=== PATIENT | female | born 1950 | race Caucasian/White ===

== ENCOUNTER 2016-07-11 | Emergency (ER) | payer BC, MEDICAID, OTHER ==
[~2016-07-11] VITALS: Ht 170.2 cm; Wt 68.0 kg
[2016-07-11] MEDS ORDERED: ASPI325T PO (00:30)
[2016-07-11] MEDS ORDERED: CALC600T57 PO (00:30)
[2016-07-11] MEDS ORDERED: [UNRECOGNIZED DRUG - CODE] PO (00:30)
[2016-07-11] MEDS ORDERED: MAGN250T3 PO (00:30)
[2016-07-11] MEDS ORDERED: POTA99TA PO (00:30)
[2016-07-11] MEDS ORDERED: LASI40TA PO (00:30)
[2016-07-11] MEDS ORDERED: CO Q10CA PO (00:30)
[2016-07-11] MEDS ORDERED: LANS15CA PO (00:30)
[2016-07-11] MEDS ORDERED: CODCAP PO (00:30)
[2016-07-11] MEDS ORDERED: COLA100C PO (00:30)
[2016-07-11] MEDS ORDERED: NEXI1CAP4 PO (00:30)
[2016-07-11] MEDS ORDERED: ENAL1.25 PO (00:30)
[2016-07-11] MEDS ORDERED: MELO7.5T6 PO ×2 (00:30)
[2016-07-11] MEDS ORDERED: hydrALAZINE INJ 20 MG/ML VIAL IV ONE (01:30)
[2016-07-11 02:04] LABS: ANION GAP 7 MEQ/L (8-16); BLOOD UREA NITROGEN 13 MG/DL (7-18); CALCIUM LEVEL 8.6 MG/DL (8.8-10.2); CARBON DIOXIDE LEVEL 32 MEQ/L (21-32); CHLORIDE LEVEL 100 MEQ/L (98-107); GLOMERULAR FILTRATION RATE > 60.0 (>45); GLUCOSE, FASTING 102 MG/DL (80-110); POTASSIUM SERUM 3.6 MEQ/L (3.5-5.1); SODIUM LEVEL 139 MEQ/L (136-145); T UPTAKE 33 % (30-39); THYROXINE (T4) 10.5 UG/DL (4.5-12.0)
[2016-07-11 03:32] VITALS: BP 134/66
--- NOTE | 2016-07-11 19:56 | ECGEPIP ---
Stationary ECG Study [facility] - ED Test Date: 2016-07-11 Pat Name: NORTH BERRY Department: Room: - Gender: F Schedule Maker: natalie : 1950 Requested By: SALO GENTILE Order Number: [id number] Reading MD: Erum John Measurements Intervals Vega Rate: 73 P: 51 CO: 156 QRS: 18 QRSD: 91 T: 39 QT: 412 QTc: 455 Interpretive Statements SINUS RHYTHM WITH OCCASIONAL VENTRICULAR PREMATURE COMPLEXES NSTTW ABNORMALITY INCREASED RATE 04/10/13 Electronically Signed On 07-11-2016 19:55:48 EDT by Eurm John
== END 2016-07-11 03:42 | disposition home or self-care (01) ==
LOC: M ED 01:37
DX: I49.3 Ventricular premature depolarization (principal)

== ENCOUNTER → 2018-01-26 | Outpatient (CLI) | payer OTHER, MEDICARE ==
[2018-01-26 12:56] LABS: HEMATOCRIT 37.7 % (36.0-47.0); HEMOGLOBIN 12.9 g/dl (12.0-15.5); MEAN CORPUSCULAR HEMOGLOBIN 30.6 pg (27.0-33.0); MEAN CORPUSCULAR HGB CONC 34.2 g/dl (32.0-36.5); MEAN CORPUSCULAR VOLUME 89.3 fl (80.0-96.0); PLATELET COUNT, AUTOMATED 307 10^3/uL (150-450); RED BLOOD COUNT 4.22 10^6/uL (4.00-5.40); RED CELL DISTRIBUTION WIDTH 13.4 % (11.5-14.5); WHITE BLOOD COUNT 4.8 10^3/uL (4.0-10.0)
[2018-01-26 13:09] LABS: INR 0.94; PROTHROMBIN TIME 12.7 SECONDS (12.1-14.4)
[2018-01-26 13:25] LABS: ERYTHROCYTE SEDIMENTATION RATE 12 mm/hr (0-30)
[2018-01-26 13:27] LABS: ALBUMIN 3.6 GM/DL (3.2-5.2); ALBUMIN/GLOBULIN RATIO 1.13 (1.00-1.93); ALKALINE PHOSPHATASE 60 U/L (45-117); ALT/SGPT 22 U/L (12-78); ANION GAP 6 MEQ/L (8-16); AST/SGOT 19 U/L (7-37); BILIRUBIN,TOTAL 0.6 MG/DL (0.2-1.0); BLOOD UREA NITROGEN 11 MG/DL (7-18); CALCIUM LEVEL 8.5 MG/DL (8.8-10.2); CARBON DIOXIDE LEVEL 31 MEQ/L (21-32); CHLORIDE LEVEL 102 MEQ/L (98-107); CREATININE FOR GFR 0.75 MG/DL (0.55-1.30); GLOMERULAR FILTRATION RATE > 60.0 (>45); GLUCOSE, FASTING 97 MG/DL (70-100); POTASSIUM SERUM 4.5 MEQ/L (3.5-5.1); SODIUM LEVEL 139 MEQ/L (136-145); TOTAL PROTEIN 6.8 GM/DL (6.4-8.2)
== END ==
LOC: M LAB 12:24
DX: Z01.818 Encounter for other preprocedural examination (principal); M17.11 Unilateral primary osteoarthritis, right knee
CPT/HCPCS: 71046

== ENCOUNTER 2018-02-07 05:45 | Inpatient (IN) | payer OTHER, MEDICARE ==
[2018-02-07] MEDS ORDERED: LR 1,000 ML IV (06:00)
[2018-02-07] MEDS ORDERED: MIDAZOLAM INJ 2 MG/2 ML VIAL (J2250) As Ordered ×2 (06:48→07:01)
[2018-02-07] MEDS ORDERED: fentaNYL 100 MCG/2 ML INJECTION (J3010) As Ordered ×2 (06:48→07:01)
[2018-02-07] MEDS ORDERED: ACETAMINOPHEN 500 MG TAB As Ordered (07:19)
[2018-02-07] MEDS: fentaNYL 100 MCG/2 ML INJECTION (J3010) IV ×2 (07:22→07:24)
[2018-02-07] MEDS: MIDAZOLAM INJ 2 MG/2 ML VIAL (J2250) IV ×2 (07:22→07:24)
[2018-02-07] MEDS ORDERED: dexameTHASONE 4 MG/ML 1ML VIAL (J1100) As Ordered (08:15)
[2018-02-07] MEDS ORDERED: BUPIVACAINE/DEXTROSE 0.75% 2 ML AMP As Ordered (08:15)
[2018-02-07] MEDS ORDERED: ONDANSETRON 4MG/2ML VIAL (J2405) As Ordered (08:15)
[2018-02-07] MEDS ORDERED: PROPOFOL 200 MG/20 ML VIAL As Ordered (08:15)
[2018-02-07] MEDS ORDERED: ePHEDrine SULFATE 25 MG/5 ML(5MG/ML) SYRINGE As Ordered (08:33)
[2018-02-07] MEDS ORDERED: PHENYLephrine HCL 500 MCG/5 ML (100MCG/ML) SYRINGE (J2370) As Ordered (08:49)
[2018-02-07] MEDS: TRANEXAMIC ACID 100 MG/ML 10ML VIAL As Ordered (08:55)
[2018-02-07] MEDS: ceFAZolin 1GM INJ (J0690 PER 500MG) As Ordered (08:55)
[2018-02-07] MEDS: BUPIVACAINE LIPOSOME/PF 1.3% 20 ML VIAL (13.3MG/ML)(EXPAREL) As Ordered (08:55)
[2018-02-07] MEDS: EPINEPHrine INJ 1 MG/ML 1ML AMP As Ordered (08:55)
[2018-02-07] MEDS: BUPIVACAINE HCL 0.25% 30 ML VIAL As Ordered (08:55)
[2018-02-07] MEDS ORDERED: MORPHINE 1MG/ML IN 0.9% NACL 100ML IV BAG As Ordered (09:28)
[2018-02-07] MEDS: MORPHINE 1MG/ML IN 0.9% NACL 100ML IV BAG IV (10:14)
[2018-02-07] MEDS ORDERED: ACETAMINOPHEN TAB 650MG DOSE (2X325MG) PO (10:15)
[2018-02-07] MEDS ORDERED: EPIDURAL/PCA KEYS XX (10:15)
[2018-02-07] MEDS ORDERED: ONDANSETRON 4MG/2ML VIAL (J2405) IV ×2 (10:15)
[2018-02-07] MEDS ORDERED: FLEET ENEMA PR (10:15)
[2018-02-07] MEDS ORDERED: NALOXONE INJ 0.4 MG/1 ML VIAL (J2310) IV (10:15)
[2018-02-07] MEDS ORDERED: MEPERIDINE INJ 25 MG/ML VIAL (J2175) IV (10:15)
[2018-02-07] MEDS ORDERED: fentaNYL 100 MCG/2 ML INJECTION (J3010) IV (10:15)
[2018-02-07] MEDS ORDERED: METOCLOPRAMIDE INJ 10MG/2ML VIAL (J2765) IV (10:15)
[2018-02-07] MEDS: LR 1,000 ML IV ×3 (10:15→22:45)
[2018-02-07] MEDS ORDERED: PERCOCET 5MG/325MG TAB PO (10:15)
[2018-02-07] MEDS ORDERED: NALBUPHINE HCL 10 MG/ML AMP (J2300) IV (10:15)
[2018-02-07] MEDS ORDERED: diphenhydrAMINE INJ 50MG/ML VIAL (J1200) IV (10:15)
[2018-02-07] MEDS ORDERED: EPINEPHrine INJ 1 MG/ML 1ML AMP (11:04)
[2018-02-07] MEDS ORDERED: ROPIvacaine 0.5% 30 ML INJECTION (J2795 PER 1MG) (11:04)
[2018-02-07] MEDS ORDERED: dexameTHASONE 10 MG/1 ML VIAL PRES.FREE (J1100) (11:04)
[2018-02-08 06:00] LABS: HEMATOCRIT 30.1 % (36.0-47.0); MEAN CORPUSCULAR HEMOGLOBIN 29.9 pg (27.0-33.0); MEAN CORPUSCULAR HGB CONC 33.2 g/dl (32.0-36.5); MEAN CORPUSCULAR VOLUME 89.9 fl (80.0-96.0); PLATELET COUNT, AUTOMATED 272 10^3/uL (150-450); RED BLOOD COUNT 3.35 10^6/uL (4.00-5.40); WHITE BLOOD COUNT 12.1 10^3/uL (4.0-10.0)
[2018-02-08 06:26] LABS: ANION GAP 7 MEQ/L (8-16); BLOOD UREA NITROGEN 8 MG/DL (7-18); CALCIUM LEVEL 7.9 MG/DL (8.8-10.2); CARBON DIOXIDE LEVEL 29 MEQ/L (21-32); CHLORIDE LEVEL 104 MEQ/L (98-107); CREATININE FOR GFR 0.62 MG/DL (0.55-1.30); GLOMERULAR FILTRATION RATE > 60.0 (>45); GLUCOSE, FASTING 108 MG/DL (70-100); POTASSIUM SERUM 3.6 MEQ/L (3.5-5.1); SODIUM LEVEL 140 MEQ/L (136-145)
[2018-02-08] MEDS ORDERED: PERCOCET 5MG/325MG TAB PO (06:45)
[2018-02-08] MEDS: ONDANSETRON 4 MG TAB (S0181) PO (10:05)
[2018-02-08] MEDS: MOM 30ML SUSPENSION UDC PO (11:17)
[2018-02-08] MEDS: SENOKOT S TAB PO (11:18)
[2018-02-08] MEDS: MULTIVITAMINS/MINERALS THERAP 1 TAB PO (11:18)
[2018-02-08] MEDS: MIRALAX *UNIT DOSE* 17GM PACKET PO (11:18)
[2018-02-08] MEDS: FUROSEMIDE 40 MG TAB PO (11:18)
[2018-02-08] MEDS: PERCOCET 5MG/325MG TAB PO (11:27)
[2018-02-08] MEDS ORDERED: RIVAROXABAN 10 MG TAB (XARELTO) PO (18:00)
== END 2018-02-08 14:20 | disposition home or self-care (01) | DRG 302 ==
LOC: M OR 05:45 → M MS5PR 10:55
PROC: 0SRC0J9 Replacement of Right Knee Joint with Synthetic Substitute, Cemented, Open Approach (ICD-10-PCS; principal; 2018-02-07 07:30)
DX: M17.11 Unilateral primary osteoarthritis, right knee (principal); F32.9 Major depressive disorder, single episode, unspecified; Z79.899 Other long term (current) drug therapy; Z79.82 Long term (current) use of aspirin; F41.9 Anxiety disorder, unspecified; Z87.891 Personal history of nicotine dependence; Z85.3 Personal history of malignant neoplasm of breast

== ENCOUNTER 2018-07-14 09:11 | Day surgery (SDC) | payer OTHER ==
[~2018-07-14] VITALS: Ht 170.2 cm; Wt 72.6 kg
[~2018-07-14 09:11] MED LIST: ASPI325T PO; BONI150T PO; CALC600T57 PO; CARD40TA PO; CO Q10CA PO; CODCAP4 PO; COLA100C5 PO; ENAL1.25 PO; LANS15CA PO; LASI40TA9 PO; LIDOCAINE 2% INJ 100 MG/5 ML SDV (FOR ANES.) As Ordered ONE; MAGN200T PO; MAGN250T3 PO; MELO7.5T7 PO; MIRA3350 PO; NEXI1CAP4 PO; NS 1,000 ML IV ONE; PERC5TAB12 PO; POTA99TA PO; PREV1CAP PO; PROPOFOL 200 MG/20 ML VIAL As Ordered ONE; RED600TA PO; SCOPALAMINE TD; XARE10TA PO; [UNRECOGNIZED DRUG - CODE] PO
[2018-07-14] MEDS ORDERED: PROPOFOL 200 MG/20 ML VIAL As Ordered ONE (10:31)
[2018-07-14 10:55] VITALS: BP 128/70
--- NOTE | 2018-07-14 10:56 | ROOR ---
Patient Name: Lindsey Chowdhury Procedure Date: 07/14/2018 10:11 AM Date of : 1950 Age: 67 Room: [facility] Gender: Female Note Status: Finalized Procedure: Colonoscopy Indications: Screening in patient at increased risk: Colorectal cancer in sister before age 60 Providers: Campos Whalen Jr, MD Referring MD: Daniele Boyd MD Requesting Provider: Medicines: Propofol per Anesthesia Complications: No immediate complications. Procedure: Pre-Anesthesia Assessment: - Prior to the procedure, a History and Physical was performed, and patient medications and allergies were reviewed. The patient is competent. The risks and benefits of the procedure and the sedation options and risks were discussed with the patient. All questions were answered and informed consent was obtained. Patient identification and proposed procedure were verified by the physician and the nurse in the pre-procedure area and in the procedure room. Mental Status Examination: alert and oriented. Airway Examination: normal oropharyngeal airway and neck mobility. Respiratory Examination: clear to auscultation. CV Examination: normal. ASA Grade Assessment: II - A patient with mild systemic disease. After reviewing the risks and benefits, the patient was deemed in satisfactory condition to undergo the procedure. The anesthesia plan was to use moderate sedation / analgesia (conscious sedation). Immediately prior to administration of medications, the patient was re-assessed for adequacy to receive sedatives. The heart rate, respiratory rate, oxygen saturations, blood pressure, adequacy of pulmonary ventilation, and response to care were monitored throughout the procedure. The physical status of the patient was re-assessed after the procedure. The Colonoscope was introduced through the anus and advanced to the cecum, identified by appendiceal orifice and ileocecal valve. The colonoscopy was performed without difficulty. The patient tolerated the procedure well. The quality of the bowel preparation was adequate. Findings: The rectum, recto-sigmoid colon, sigmoid colon, descending colon, transverse colon, hepatic flexure, ascending colon, cecum, appendiceal orifice and ileocecal valve appeared normal. The sigmoid colon, descending colon, transverse colon and ascending colon were moderately redundant. Impression: - The rectum, recto-sigmoid colon, sigmoid colon, descending colon, transverse colon, hepatic flexure, ascending colon, cecum, appendiceal orifice and ileocecal valve are normal. - Redundant colon. - No specimens collected. Recommendation: - Discharge patient to home (ambulatory). - Repeat colonoscopy in 5 years for screening purposes. Campos Whalen MD Campos Whalen Jr, MD 07/14/2018 10:36:47 AM This report has been signed electronically. Number of Addenda: 0 Note Initiated On: 07/14/2018 10:11 AM Estimated Blood Loss: Estimated blood loss: none.
== END 2018-07-14 11:10 | disposition home or self-care (01) ==
LOC: M OPP 09:11
PROVIDERS: ATTEND Surgery
DX: Z12.11 Encounter for screening for malignant neoplasm of colon (principal); Z80.0 Family history of malignant neoplasm of digestive organs; Q43.8 Other specified congenital malformations of intestine; Z79.82 Long term (current) use of aspirin; Z79.899 Other long term (current) drug therapy

== ENCOUNTER → 2018-09-02 | Outpatient (CLI) | payer OTHER ==
[~2018-09-02] MED LIST changes: +ADVI200T PO; +ASPI-1 PO; +ASPI-262 PO; -ASPI325T PO; -BONI150T PO; +BONI1TAB PO; +CALC-190 PO; +DILT30TA PO; +ESOM1CAP5 PO; +HM P99TA PO; +IBAN150T6 PO; +LANS30CA PO; -LIDOCAINE 2% INJ 100 MG/5 ML SDV (FOR ANES.) As Ordered ONE; +MAGN400C PO; +MULTCAP PO; -NS 1,000 ML IV ONE; -PROPOFOL 200 MG/20 ML VIAL As Ordered ONE
[2018-09-02 12:53] LABS: HEMATOCRIT 38.7 % (36.0-47.0); HEMOGLOBIN 12.8 g/dl (12.0-15.5); MEAN CORPUSCULAR HEMOGLOBIN 29.6 pg (27.0-33.0); MEAN CORPUSCULAR HGB CONC 33.1 g/dl (32.0-36.5); MEAN CORPUSCULAR VOLUME 89.6 fl (80.0-96.0); PLATELET COUNT, AUTOMATED 364 10^3/uL (150-450); RED BLOOD COUNT 4.32 10^6/uL (4.00-5.40); WHITE BLOOD COUNT 3.8 10^3/uL (4.0-10.0)
[2018-09-02 13:08] LABS: INR 0.91; PROTHROMBIN TIME 12.3 SECONDS (12.1-14.4)
[2018-09-02 13:16] LABS: ALBUMIN 3.9 GM/DL (3.2-5.2); ALT/SGPT 21 U/L (12-78); BILIRUBIN,TOTAL 0.5 MG/DL (0.2-1.0); BLOOD UREA NITROGEN 9 MG/DL (7-18); CARBON DIOXIDE LEVEL 33 MEQ/L (21-32); CHLORIDE LEVEL 100 MEQ/L (98-107); CREATININE FOR GFR 0.69 MG/DL (0.55-1.30); GLOMERULAR FILTRATION RATE > 60.0 (>45); GLUCOSE, FASTING 77 MG/DL (70-100); POTASSIUM SERUM 4.2 MEQ/L (3.5-5.1); SODIUM LEVEL 138 MEQ/L (136-145); TOTAL PROTEIN 6.7 GM/DL (6.4-8.2)
[2018-09-02 13:31] LABS: ERYTHROCYTE SEDIMENTATION RATE 11 mm/hr (0-30)
--- NOTE | 2018-09-02 15:31 | REP ---
REASON: Preoperative testing. COMPARISON: Multiple latest, 01/26/2018. FINDINGS: The superior mediastinal structures are midline. The cardiac silhouette is unremarkable in size, shape, and position. The diaphragmatic surfaces of the lungs are regular, and the costophrenic angles are clear. The pulmonary link are clear. The imaged osseous structures are intact. IMPRESSION: There is no acute cardiopulmonary disease. Electronically Signed by Aleks Perla DO 09/02/2018 03:36 P
--- NOTE | 2018-09-02 23:57 | ECGEPIP ---
Stationary ECG Study [facility] Test Date: 2018-09-02 Pat Name: NORTH BERRY Department: Room: - Gender: F Supervisor Facepiece Line: : 1950 Requested By: Diana Wyatt @ [facility] Order Number: [id number] Reading MD: Agustín Vogt Measurements Intervals Dumont Rate: 56 P: 73 AK: 174 QRS: 43 QRSD: 94 T: 48 QT: 427 QTc: 414 Interpretive Statements SINUS BRADYCARDIA COMPARED TO THE MOST RECENT TRACING ON 01/26/2018 AT 12:47:06 P.M.. NO SIGNIFICANT CHANGES Electronically Signed On 09-02-2018 23:56:53 EDT by Agustín Vogt
== END ==
LOC: M LAB 11:02
PROVIDERS: ATTEND Orthopaedic Surgery
DX: M17.12 Unilateral primary osteoarthritis, left knee (principal)

== ENCOUNTER 2018-09-08 19:17 | Inpatient (IN) | payer OTHER ==
[~2018-09-08] VITALS: Ht 170.2 cm; Wt 72.0 kg
[~2018-09-08 19:17] MED LIST changes: -ADVI200T PO; -ASPI-262 PO; -CALC-190 PO; -DILT30TA PO; -ESOM1CAP5 PO; -HM P99TA PO; -IBAN150T6 PO; -LANS30CA PO; -MAGN400C PO; -MULTCAP PO
[2018-09-08] MEDS ORDERED: MORPHINE 4 MG/ML 1ML VIAL/SYRINGE (J2270) IV ONE (20:30)
[2018-09-08] MEDS ORDERED: PERCOCET 5MG/325MG TAB PO ONE (22:30)
[2018-09-08] MEDS ORDERED: MOM 30ML SUSPENSION UDC PO PRN (22:45)
[2018-09-08] MEDS ORDERED: BISACODYL 10 MG SUPP PR PRN (22:45)
[2018-09-08] MEDS ORDERED: ACETAMINOPHEN TAB 650MG DOSE (2X325MG) PO PRN (22:45)
[2018-09-08 23:06] LABS: BASO % 0.6 % (0.0-1.0); EOS # 0.1 10^3/uL (0.0-0.50); EOS % 1.2 % (0.0-3.0); HEMATOCRIT 32.8 % (36.0-47.0); LYMPH # 1.5 10^3/uL (1.5-4.5); LYMPH % 22.7 % (24.0-44.0); MEAN CORPUSCULAR HEMOGLOBIN 30.1 pg (27.0-33.0); MEAN CORPUSCULAR HGB CONC 33.5 g/dl (32.0-36.5); MEAN CORPUSCULAR VOLUME 89.9 fl (80.0-96.0); MONO # 0.6 10^3/uL (0.0-0.8); MONO % 9.7 % (0.0-5.0); NEUTROPHILS # 4.3 10^3/uL (1.8-7.7); NEUTROPHILS % 65.5 % (36.0-66.0); PLATELET COUNT, AUTOMATED 295 10^3/uL (150-450); RED BLOOD COUNT 3.65 10^6/uL (4.00-5.40); WHITE BLOOD COUNT 6.6 10^3/uL (4.0-10.0)
[2018-09-08] MEDS ORDERED: ESOM1CAP5 PO (23:06)
[2018-09-08] MEDS ORDERED: ASPI-262 PO (23:06)
[2018-09-08] MEDS ORDERED: RED600TA PO (23:06)
[2018-09-08] MEDS ORDERED: MAGN400C PO (23:06)
[2018-09-08] MEDS ORDERED: MIRA3350 PO (23:06)
[2018-09-08] MEDS ORDERED: DILT30TA PO (23:06)
[2018-09-08] MEDS ORDERED: CALC-190 PO (23:06)
[2018-09-08] MEDS ORDERED: HM P99TA PO (23:06)
[2018-09-08] MEDS ORDERED: ADVI200T PO (23:06)
[2018-09-08] MEDS ORDERED: LANS30CA PO (23:06)
[2018-09-08] MEDS ORDERED: CO Q10CA PO (23:06)
[2018-09-08] MEDS ORDERED: MULTCAP PO (23:06)
[2018-09-08] MEDS ORDERED: LASI40TA9 PO (23:06)
[2018-09-08] MEDS ORDERED: IBAN150T6 PO (23:06)
[2018-09-08 23:18] LABS: INR 0.98; PARTIAL THROMBOPLASTIN TIME 29.8 SECONDS (25.4-37.6); PROTHROMBIN TIME 13.1 SECONDS (12.1-14.4)
[2018-09-08 23:33] LABS: BLOOD UREA NITROGEN 9 MG/DL (7-18); CALCIUM LEVEL 8.4 MG/DL (8.8-10.2); CARBON DIOXIDE LEVEL 29 MEQ/L (21-32); CHLORIDE LEVEL 104 MEQ/L (98-107); GLOMERULAR FILTRATION RATE > 60.0 (>45); GLUCOSE, FASTING 102 MG/DL (70-100); POTASSIUM SERUM 3.8 MEQ/L (3.5-5.1); SODIUM LEVEL 139 MEQ/L (136-145)
[2018-09-09 00:16] VITALS: BP 128/64
[2018-09-09] MEDS: MORPHINE 4 MG/ML 1ML VIAL/SYRINGE (J2270) IV PRN ×4 (00:18→14:29)
[2018-09-09] MEDS: HEPARIN SOD (PORCINE) 5000 UNITS/ML VIAL SC SCH ×3 (00:19→21:37)
--- NOTE | 2018-09-09 00:23 | HPE ---
DATE OF ADMISSION: 09/08/2018 CHIEF COMPLAINT: Left distal femur fracture. HISTORY OF PRESENT ILLNESS: This is a 67-year-old female, had an unfortunate slip and fall while carrying a planter today. She fell directly onto her left knee. She did not injure anything else. No pain at the hip or the foot. No prior fractures. She did not sustain a head injury, loss of consciousness, chest pain or shortness of breath. She does have a right total knee and is planned actually for a left total knee by Dr. García, who did her first surgery for a left total knee, on September 30. She has had a previous right total knee arthroplasty that is doing well. PAST MEDICAL HISTORY: 1. Gastroesophageal reflux disease (GERD). 2. Irregular heartbeat. 3. Premature ventricular contractions. MEDICATIONS: Include ASA, vitamin D, diltiazem, esomeprazole, Lasix, Boniva, Prevacid, magnesium, Advil as needed, multivitamin, MiraLax, potassium. ALLERGIES: No known drug allergies. SURGICAL HISTORY: Right total knee arthroplasty. 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 García back January 2018. This is doing well. 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 She is a nonsmoker. She does not consume alcohol or abuse street drugs. PHYSICAL EXAMINATION: Well-appearing 67-year-old female, looks stated age. Vital signs were stable. Blood pressure 141/68. Pulse rate 70. Respiratory rate 18. 96% on room air. She is lying supine in the hospital bed. She is alert and oriented times three. Mood and affect pleasant, positive. She is here with her . On inspection, there is no obvious open injuries. The left knee is swollen and a little bit ecchymotic. There is no redness tracking down the leg, down into the foot or hip. The right lower extremity is normal on inspection. No obvious overlying redness, swelling, ecchymosis, deformity. There is an anterior midline incision that is well healed, free of complication at the knee. Definite pain to palpation distally at the knee but nothing at the hip or ankle on the left side. She is able to wiggle her toes, dorsiflex and plantar flex her foot. She has normal sensation throughout both feet and the superficial and deep peroneal nerves, as well as saphenous, sural and tibial. Good strong dorsalis pedis and tibialis posterior pulses. CT scan was reviewed of the left entire femur. This shows a sagittal split along the anterolateral aspect of the distal femur. This enters into the notch. This is nondisplaced overall. There is no obvious comminution. The joint surface appears congruent. There is no other fracture of the hip or anywhere else in the femur, or at the tibial plateau, although this is in the margin of the CT scan. On the administrative assistant receptionist views, the right total knee arthroplasty appears normal. ASSESSMENT/PLAN: This is a 67-year-old female with a sagittal split of the anterolateral aspect of the left distal femur. Pending a total knee arthroplasty, I would like to get Dr. García's opinion in the morning as to what exactly to do with this fracture. I think the best means of treating this will be non-weightbearing for 6 weeks, potentially in a knee immobilizer, hinged knee brace eventually, to have this heal without internal fixation, then perform a delayed total knee arthroplasty. Alternatively, one could fix this immediately with lateral plate and screw fixation and then remove the distal screws once the fracture is fully healed to perform the total knee arthroplasty. This would allow one to have immediate mobilization but may complicate her arthroplasty surgery. In the meantime, we will admit her to the hospital, venous thromboembolism (VTE) prophylaxis with heparin 5000 units subcu twice a day and control her pain. She will be on bedrest for now. Eventually we will order a knee immobilizer for her left lower extremity and try to mobilize her non-weightbearing is my tentative plan, but I will round in the morning as well as communicating this case, in this pleasant female, with an was unfortunate injury, with Dr. García in the morning. Thank very much for involving me in her care.
[2018-09-09 06:00] VITALS: BP 127/72
[2018-09-09] MEDS: ONDANSETRON 4 MG TAB (S0181) PO PRN ×3 (06:35→14:28)
--- NOTE | 2018-09-09 08:20 | IPN ---
DATE: 09/09/2018 CHIEF COMPLAINT: Post admission day one left distal femur fracture. HISTORY OF PRESENT ILLNESS: This 67-year-old female who was scheduled for left total knee arthroplasty in September by Dr. García unfortunately sustained a ground-level fall directly onto her left knee. She sustained a closed nondisplaced distal femur fracture. I was seeing her this morning in followup. She is doing well. She complains of some mild knee pain. Otherwise no voiced concerns to the nursing staff. PHYSICAL EXAMINATION: Well-appearing 67-year-old female in no acute distress. She is lying supine in the hospital bed. Vital signs are stable this morning. Blood pressure 127/72. Pulse rate 69. Temperature 97.6. Respiratory rate 18. 97% on room air. Left lower extremity closed, neurovascularly intact. She has normal sensation throughout the foot and good pedal pulses. She is able to her wiggle toes, dorsiflex and plantar flex her foot. LABORATORY EXAMINATION: From last evening reveals hemoglobin 11.0. INR, PT and APTT were normal. Electrolytes appear normal as well. ASSESSMENT/PLAN: This is a 67-year-old female with a nondisplaced essential split of her left distal femur who may benefit from either non-weightbearing with crutches and a hinged knee brace locked in full extension for least 6 weeks with early passive range of motion versus immediate open reduction internal fixation and eventual removal of hardware followed by total knee arthroplasty. Unfortunately, Dr. García her surgeon from the right total knee arthroplasty and who had booked her for a left total knee arthroplasty is away on holidays as is [place] Tade[place] [facility] [place] but I will attempt to contact either one of them to have their opinion on what would be the best course of action. In addition, I myself am going away so I will have to hand over the continuing care of this pleasant woman to Dr. Archer who is permastone installer today.
[2018-09-09] MEDS: MIRALAX *UNIT DOSE* 17GM PACKET PO SCH (08:47)
[2018-09-09] MEDS: DOCUSATE SODIUM 100 MG CAP PO SCH ×2 (08:47→21:37)
[2018-09-09] MEDS ORDERED: SUCRALFATE 1 GM TAB PO PRN (09:45)
[2018-09-09] MEDS ORDERED: CALCIUM CARBONATE 500 MG CHEW U/D PO PRN (09:45)
[2018-09-09] MEDS ORDERED: MIRALAX *UNIT DOSE* 17GM PACKET PO PRN (09:45)
[2018-09-09] MEDS: OMEPRAZOLE 20 MG CAP PO SCH (10:12)
[2018-09-09] MEDS: ASPIRIN 325 MG TAB PO SCH ×2 (10:13→21:38)
[2018-09-09] MEDS: FUROSEMIDE 40 MG TAB PO SCH (10:13)
--- NOTE | 2018-09-09 10:19 | CR.PDOC ---
General Date of Consultation: September 09, 2018 Consultation REASON FOR CONSULTATION/CHIEF COMPLAINT: Left distal femur fracture s/p mechanical fall HISTORY OF PRESENT ILLNESS: Pt is a 67 yo female with PMH of GERD and 2 prior accidental mechanical fall with prior injuries to b/l knees s/p right total knee originally scheduled for left total knee in September came to [facility] with left distal femur fracture s/p accidental mechanical fall. Pt reported that she was holding a plant pot in her hands and tripped then fell face down/onto her left knee. She reported that she did not injure anywhere else besides that after her fell the plant that she was holding was against her anterior chest wall. She reported 4/10 dull intermittent chest wall pain at the location of inferior sternum/xiphoid process that is aggravated by pressure and movement. Reported her left knee pain is 8/10 sharp constant pain; pain at both position were alleviated to pain meds and not moving. She also reported some nausea and dry heaving but no emesis. ALLERGIES: Please see below. HOME MEDICATIONS: Please see below. PAST MEDICAL HISTORY: 1. GERD 2. Irregular heartbeat 3. PVC 4. B/l Cataracts PAST SURGICAL HISTORY: 1.Right total knee arthroplasty 2. [id number] years ago 3. cholecystectomy 4. bladder suspension 5. B/l elbow repair 6. Partial mastectomy 7. Right, jaw surgery with plate, jaw surgery plate removed 8. Bilateral cataracts 9. Right shoulder surgery, removal of vaginal 10. Cyst melanoma on back and right knee 11. 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 Denies emesis NEUROLOGICAL: Positive for ability to move 4 extremities. Denies any numbness/tingling/loss of sensation in all 4 extremities. PHYSICAL EXAMINATION: VITAL SIGNS: Please see below. GENERAL APPEARANCE: Alert and awake, pleasant and cooperative but appeared to be in mild distress and in pain. HEENT: Head normocephalic, atraumatic, conjunctiva and lids grossly normal, no scleral icterus RESPIRATORY: CTA b/l, no rales, wheezing, or rhonchi. CARDIOVASCULAR: RRR, no murmur, normal S1 and S2 ABDOMEN: Soft, abdomen non-distended, bowel sound aus in all 4 quadrants, no tenderness upon touch EXTREMITIES: B/l upper extremities +5/5 strength. Pt able to move b/l lower extremity actively. Intact sensations with no numbness/tingling upon touch in b/l upper and lower extremities, and b/l LE intact with no gross open wound noted NEUROLOGICAL: Cognitive fxn and memory grossly intact LABORATORY DATA: Please see below. ASSESSMENT/PLAN: 1. Left distal femur fracture. Orthopedic group following pt and recommended left total knee. Dr. Sandy saw her inpt and Dr. García performed left total knee arthroplasty prior; she originally was scheduled for right total knee arthroplasty on 09/30/18. At this time Dr. Sandy recommends either non- weightbearing with crutches as well as hinged knee brace locked in full extension X > 6 weeks vs immediate ORIF f/u by removal of hardware and eventual total right knee arthroplasty. Morphine and Zofran PRN 2. GERD. Pt's output's med non-formulary. She denies any chest pain/heartburn; will be on Omeprazole, Carafate, and Tums. 3. PMH of PVC with irregular heart rate. Pt denies any palpitation, HR RRR at time of examination. Pt currently on 5 daly and no remote tele on this floor; if symptoms occur or arrhythmia noted, may have pt on remote tele. 4. Constipation. Pt reports medical hx of constipation with Miralax at home; denies current constipation. Pt will be on Miralax, Colace, milk of mag. HOSPITALIST ATTENDING NOTE: I have independently interviewed, examined, and discussed treatment options with the patient at the bedside with my resident physician, Dr. Hector. I agree with the physical findings, and management plans as documented in my Resident physician's, Dr. Hector's, progress note. Patient's concerns and questions were satisfactorily answered. Patient was encouraged to call me should questions arise. Vital Signs/I&O Vital Signs Date Time Temp Pulse Resp B/P (MAP) Pulse Ox O2 Delivery O2 Flow Rate FiO2 5/17/19 06:46 18 09/09/18 06:00 97.6 69 127/72 (90) 97 09/08/18 19:18 Room Air I&O- Last 24 Hours up to 6 AM 09/09/18 06:00 Intake Total 600 ml Output Total 400 ml Balance 200 ml Laboratory Data Labs 24H Laboratory Tests 2 09/08/18 23:00: Immature Granulocyte % (Auto) 0.3, White Blood Count 6.6, Red Blood Count 3.65L, Hemoglobin 11.0L, Hematocrit 32.8L, Mean Corpuscular Volume 89.9, Mean Corpuscular Hemoglobin 30.1, Mean Corpuscular Hemoglobin Concent 33.5, Red Cell Distribution Width 13.3, Platelet Count 295, Neutrophils (%) (Auto) 65.5, Lymphocytes (%) (Auto) 22.7L, Monocytes (%) (Auto) 9.7H, Eosinophils (%) (Auto) 1.2, Basophils (%) (Auto) 0.6, Neutrophils # (Auto) 4.3, Lymphocytes # (Auto) 1.5, Monocytes # (Auto) 0.6, Eosinophils # (Auto) 0.1, Basophils # (Auto) 0.0, Nucleated Red Blood Cells % (auto) 0.0, Prothrombin Time 13.1, Prothromb Time International Ratio 0.98, Activated Partial Thromboplast Time 29.8, Anion Gap 6L, Glomerular Filtration Rate > 60.0, Blood Urea Nitrogen 9, Creatinine 0.60, Sodium Level 139, Potassium Level 3.8, Chloride Level 104, Carbon Dioxide Level 29, Calcium Level 8.4L CBC/BMP Laboratory Tests 09/08/18 23:00 Red Blood Count 3.65 L, Mean Corpuscular Volume 89.9, Mean Corpuscular Hemoglobin 30.1, Mean Corpuscular Hemoglobin Concent 33.5, Red Cell Distribution Width 13.3, Neutrophils (%) (Auto) 65.5, Lymphocytes (%) (Auto) 22.7 L, Mo nocytes (%) (Auto) 9.7 H, Eosinophils (%) (Auto) 1.2, Basophils (%) (Auto) 0.6, Neutrophils # (Auto) 4.3, Lymphocytes # (Auto) 1.5, Monocytes # (Auto) 0.6, Eosinophils # (Auto) 0.1, Basophils # (Auto) 0.0, Calcium Level 8.4 L Allergies Coded Allergies: No Known Allergies (Unverified , 09/08/18) Home Medications Scheduled Aspirin (Aspirin) 325 Mg Tablet, 325 MG PO BID, (Reported) Calcium Carbonate/Vitamin D3 (Calcium 1,000 + D3 Caplet) 1 Each Tablet, 1 TAB PO DAILY, (Reported) Diltiazem HCl (Diltiazem HCl) 30 Mg Tablet, 30 MG PO BID, (Reported) Esomeprazole Magnesium (Esomeprazole Magnesium) 40 Mg Capsule.dr, 40 MG PO QPM, (Reported) Furosemide (Lasix) 40 Mg Tablet, 40 MG PO DAILY, (Reported) Ibandronate Sodium (Ibandronate Sodium) 150 Mg Tablet, 150 MG PO QMONTH, (Reported) FIRST WEDNESDAY OF Lansoprazole (Lansoprazole) 30 Mg Capsule.dr, 30 MG PO DAILY, (Reported) Magnesium Oxide (Magnesium) 400 Mg Capsule, 400 MG PO QPM, (Reported) Multivitamin (Multivitamins) 1 Each Capsule, 1 CAP PO QPM, (Reported) Polyethylene Glycol 3350 (Miralax) 119 Gm Powder, 17 GM PO QHS, (Reported) Potassium Gluconate (Potassium) 99 Mg Tablet, 99 MG PO QPM, (Reported) Red Yeast Rice (Red Yeast Rice) 600 Mg Tablet, 1,200 MG PO BID, (Reported) Ubidecarenone (Co Q-10) 10 Mg Capsule, 10 MG PO QPM, (Reported) Scheduled PRN Ibuprofen (Advil) 200 Mg Tablet, 200 MG PO Q6H PRN for PAIN, (Reported) TAKES UP TO 4 TABS AT A TIME PRN PAIN GME ATTESTATION [facility] ATTESTATION faculty preceptor for this patient encounter was physically present during the encounter and was fully available. All aspects of the patient interview, examination, medical decision making process, and medical care plan development were reviewed and approved by the faculty preceptor. The faculty preceptor is aware and concurs with the plan as stated in the body of this note and will attest to such by his/her cosignature. E ATTESTATION E ATTESTATION My faculty preceptor for this patient encounter was physically present during the encounter and was fully available. All aspects of the patient interview, examination, medical decision making process, and medical care plan development were reviewed and approved by the faculty preceptor. The faculty preceptor is aware and concurs with the plan as stated in the body of this note and will attest to such by his/her cosignature. JARED HECTOR DO September 09, 2018 10:19 DUKE GARCIA MD September 10, 2018 12:37
--- NOTE | 2018-09-09 14:11 | IPNPDOC ---
Date Seen The patient was seen on 09/09/18. Progress Note ADDENDUM TO CONSULTATION NOTE BY RESIDENT PHYSICIAN, DR. JARED HECTOR: HOSPITALIST ATTENDING NOTE: I have independently interviewed and examined the patient at the bedside with my Resident Physician. I agree with the documented physical findings, and concur with the management plan as discussed with the patient, the patient's , and written by my Resident physician. All patient questions and concerns were satisfactorily answered. A-FIB/CHADSVASC A-FIB History Current/History of A-Fib/PAF?: No Current Oral Anticoagulant The: No VS, I&O, 24H, Fishbone Vital Signs/I&O Vital Signs Date Time Temp Pulse Resp B/P (MAP) Pulse Ox O2 Delivery O2 Flow Rate FiO2 09/09/18 10:22 16 09/09/18 10:12 69 127/72 09/09/18 06:00 97.6 97 09/08/18 19:18 Room Air I&O- Last 24 Hours up to 6 AM 09/09/18 06:00 Intake Total 600 ml Output Total 400 ml Balance 200 ml Laboratory Data 24H LABS Laboratory Tests 2 09/08/18 23:00: Immature Granulocyte % (Auto) 0.3, White Blood Count 6.6, Red Blood Count 3.65L, Hemoglobin 11.0L, Hematocrit 32.8L, Mean Corpuscular Volume 89.9, Mean Corpuscular Hemoglobin 30.1, Mean Corpuscular Hemoglobin Concent 33.5, Red Cell Distribution Width 13.3, Platelet Count 295, Neutrophils (%) (Auto) 65.5, Lymphocytes (%) (Auto) 22.7L, Monocytes (%) (Auto) 9.7H, Eosinophils (%) (Auto) 1.2, Basophils (%) (Auto) 0.6, Neutrophils # (Auto) 4.3, Lymphocytes # (Auto) 1.5, Monocytes # (Auto) 0.6, Eosinophils # (Auto) 0.1, Basophils # (Auto) 0.0, Nucleated Red Blood Cells % (auto) 0.0, Prothrombin Time 13.1, Prothromb Time International Ratio 0.98, Activated Partial Thromboplast Time 29.8, Anion Gap 6L, Glomerular Filtration Rate > 60.0, Blood Urea Nitrogen 9, Creatinine 0.60, Sodium Level 139, Potassium Level 3.8, Chloride Level 104, Carbon Dioxide Level 29, Calcium Level 8.4L CBC/BMP Laboratory Tests 09/08/18 23:00 Red Blood Count 3.65 L, Mean Corpuscular Volume 89.9, Mean Corpuscular Hemoglobin 30.1, Mean Corpuscular Hemoglobin Concent 33.5, Red Cell Distribution Width 13.3, Neutrophils (%) (Auto) 65.5, Lymphocytes (%) (Auto) 22.7 L, Monocytes (%) (Auto) 9.7 H, Eosinophils (%) (Auto) 1.2, Basophils (%) (Auto) 0.6, Neutrophils # (Auto) 4.3, Lymphocytes # (Auto) 1.5, Monocytes # (Auto) 0.6, Eosinophils # (Auto) 0.1, Basophils # (Auto) 0.0, Calcium Level 8.4 L DUKE GARCIA MD September 09, 2018 14:11
[2018-09-09 14:45] VITALS: BP 128/80
--- NOTE | 2018-09-09 15:17 | REP ---
Clinical: Preoperative assessment . Comparison: 09/02/2018 . Technique: PA and lateral. Findings: The mediastinum and cardiac silhouette are normal. The lung link are clear and without acute consolidation, effusion, or pneumothorax. The skeletal structures are intact and normal. Impression: 1. No acute cardiopulmonary process. Electronically Signed by Yousuf Valenzuela MD 09/09/2018 03:08 P
--- NOTE | 2018-09-09 15:24 | REP ---
Clinical: Pain. Fall. Technique: AP, lateral, bilateral oblique and sunrise views of the left knee. Findings: There is a [id number] suprapatellar effusion best identified on lateral radiograph along with anterior swelling. There is a subtle sharp lucency within the lateral aspect of the distal femoral metaphysis which is highly suspicious for a subtle nondisplaced fracture. Subtle injury to the patella cannot be excluded as well. Underlying moderate to early advanced tricompartmental osteoarthritic degenerative changes are appreciated. No subcutaneous emphysema or radiodense foreign body. Impression: Effusion and suspected nondisplaced fracture of the distal femoral metaphysis. Injury to the patella cannot be excluded as well. Early advanced tricompartmental osteoarthritic degenerative changes. Electronically Signed by Yousuf Valenzuela MD 09/09/2018 03:15 P
[2018-09-09] MEDS: SCOPOLAMINE 1MG TRANSDERMAL PATCH TOP SCH (16:43)
[2018-09-09] MEDS: PERCOCET 5MG/325MG TAB PO PRN ×2 (18:20→22:36)
[2018-09-09 20:00] VITALS: BP 141/80
[2018-09-09 21:00] VITALS: BP 143/75
[2018-09-09] MEDS: MAGNESIUM OXIDE 400 MG TAB (MAG-OX) PO SCH (21:37)
[2018-09-09 22:00] VITALS: BP 131/64
[2018-09-10] MEDS: PERCOCET 5MG/325MG TAB PO PRN ×4 (03:00→23:09)
[2018-09-10] MEDS ORDERED: MAALOX 30 ML SUSP *UDC PO PRN (05:45)
[2018-09-10] MEDS ORDERED: PERCOCET 5MG/325MG TAB PO ONE (05:45)
[2018-09-10 06:00] VITALS: BP 98/60
[2018-09-10] MEDS: ONDANSETRON 4 MG TAB (S0181) PO PRN (06:08)
[2018-09-10 06:55] LABS: HEMATOCRIT 31.9 % (36.0-47.0); HEMOGLOBIN 10.6 g/dl (12.0-15.5); MEAN CORPUSCULAR HGB CONC 33.2 g/dl (32.0-36.5); MEAN CORPUSCULAR VOLUME 90.4 fl (80.0-96.0); PLATELET COUNT, AUTOMATED 261 10^3/uL (150-450); RED BLOOD COUNT 3.53 10^6/uL (4.00-5.40); WHITE BLOOD COUNT 7.6 10^3/uL (4.0-10.0)
[2018-09-10 07:25] LABS: BLOOD UREA NITROGEN 8 MG/DL (7-18); CALCIUM LEVEL 7.9 MG/DL (8.8-10.2); CARBON DIOXIDE LEVEL 32 MEQ/L (21-32); CHLORIDE LEVEL 95 MEQ/L (98-107); GLOMERULAR FILTRATION RATE > 60.0 (>45); GLUCOSE, FASTING 120 MG/DL (70-100); POTASSIUM SERUM 3.2 MEQ/L (3.5-5.1); SODIUM LEVEL 131 MEQ/L (136-145)
[2018-09-10] MEDS ORDERED: POTASSIUM CHLORIDE 10 MEQ SR TABLET PO ONE (08:45)
--- NOTE | 2018-09-10 08:46 | IPNPDOC ---
Date Seen The patient was seen on 09/10/18. Progress Note ADDENDUM TO CONSULTATION NOTE BY RESIDENT PHYSICIAN, DR. JARED HECTOR: HOSPITALIST ATTENDING NOTE: I have independently interviewed and examined the patient at the bedside with my Resident Physician. I agree with the documented physical findings, and concur with the management plan as discussed with the patient, the patient's , and written by my Resident physician. All patient questions and concerns were satisfactorily answered. A-FIB/CHADSVASC A-FIB History Current/History of A-Fib/PAF?: No Current Oral Anticoagulant The: No VS, I&O, 24H, Fishbone Vital Signs/I&O Vital Signs Date Time Temp Pulse Resp B/P (MAP) Pulse Ox O2 Delivery O2 Flow Rate FiO2 09/10/18 06:08 18 09/10/18 06:00 98.8 70 98/60 (73) 95 09/08/18 19:18 Room Air I&O- Last 24 Hours up to 6 AM 09/10/18 06:00 Intake Total 550 ml Output Total 2250 ml Balance -1700 ml Laboratory Data 24H LABS Laboratory Tests 2 09/10/18 06:03: Nucleated Red Blood Cells % (auto) 0.0, Anion Gap 4L, Glomerular Filtration Rate > 60.0, Blood Urea Nitrogen 8, Creatinine 0.50L, Sodium Level 131#L, Potassium Level 3.2L, Chloride Level 95L, Carbon Dioxide Level 32, Calcium Level 7.9L CBC/BMP Laboratory Tests 09/10/18 06:03 Red Blood Count 3.53 L, Mean Corpuscular Volume 90.4, Mean Corpuscular Hemoglobin 30.0, Mean Corpuscular Hemoglobin Concent 33.2, Red Cell Distribution Width 13.1, Calcium Level 7.9 L DUKE GARCIA MD September 10, 2018 08:46
[2018-09-10 09:00] VITALS: BP 131/68
[2018-09-10] MEDS: ASPIRIN 325 MG TAB PO SCH ×2 (09:17→21:15)
[2018-09-10] MEDS: DOCUSATE SODIUM 100 MG CAP PO SCH ×2 (09:19→21:17)
[2018-09-10] MEDS: FUROSEMIDE 40 MG TAB PO SCH (09:20)
[2018-09-10] MEDS: MIRALAX *UNIT DOSE* 17GM PACKET PO SCH (09:21)
[2018-09-10] MEDS: HEPARIN SOD (PORCINE) 5000 UNITS/ML VIAL SC SCH (09:21)
[2018-09-10] MEDS: OMEPRAZOLE 20 MG CAP PO SCH (09:22)
[2018-09-10 14:00] VITALS: BP 112/55
--- NOTE | 2018-09-10 14:28 | IPNPDOC ---
Subjective Date Seen The patient was seen on 09/10/18. Subjective Chief Complaint/HPI Pt is examined at bedside with hinge-knee brace in place on left leg. She reported that she has vomiting until this morning but reported her nausea and vomiting improves with scopolamine ordered yesterday in addition to zofran. Reported that her substernal chest wall pain and left knee pain still present; improves with pain med. No fever/chills overnight, and patient reported that she can move all 4 extremities with no numbness/tingling/loss of sensation. Pt reported that she has been walking with a walker Constitutional: Denies: Chills, Fever Pulmonary: Denies: Dyspnea Cardiovascular: Denies: Chest Pain, Palpitations Gastrointestinal: Reports: Nausea, Vomiting; Denies: Abdominal Pain Musculoskeletal: Reports: Leg Pain (pain in left knee) Objective Physical Examination General Exam: Positive: Alert, Cooperative, No Acute Distress Eye Exam: Positive: Conjunctiva & lids normal ENT Exam: Positive: Atraumatic, Mucous membr. moist/pink Neck Exam: Positive: Supple Chest Exam: Positive: Clear to auscultation, Normal air movement; Negative: Rales, Rhonchi, Wheezing Heart Exam: Positive: Rate Normal, Regular Rhythm, Normal S1, Normal S2; Negative: Murmurs Abdomen Exam: Positive: Normal bowel sounds, Soft; Negative: Tenderness Extremity Exam: Positive: Tenderness (tender to touch), Other (hinge-knee brace in place in left knee) Skin Exam: Positive: Nl turgor and temperature Neuro Exam: Positive: Normal Speech Psych Exam: Positive: Mental status NL, Mood NL, Memory Intact, Oriented x 3 A-FIB/CHADSVASC A-FIB History Current/History of A-Fib/PAF?: No Assessment /Plan Problems (1) Fracture of femur, distal, left, closed Status: Acute Problem Text: Orthopedic group following pt and recommended left total knee. Saw Dr. Sandy inpatient and Dr. García performed left total knee arthroplasty prior; she originally was scheduled for right total knee arthroplasty on 09/30/18. Hinge knee brace in place. Non-weightbearing with crutches as well as hinged knee brace locked in full extension X > 6 weeks; Morphine and Zofran PRN. Pt has been walking with walker. Pt will be on Xalreto for 28 days (2) GERD (gastroesophageal reflux disease) Status: Chronic Problem Text: Pt's outpatient med non-formulary. No heartburn/chest pain reported. Continue Omeprazole, Carafate, and Tums. (3) History of cardiac arrhythmia Problem Text: PMH of PVC with irregular heart rate. No palpitation reported, HR RRR at time of examination. Pt currently on 5 daly and no remote tele on this floor; if symptoms occur or arrhythmia noted, may consider remote tele (4) Constipation Status: Chronic Problem Text: PMH of constipation with Miralax at home; Continue Miralax, Colace, and milk of mag Plan/VTE VTE Prophylaxis Ordered?: Yes (Pt on Xalreto) VS, I&O, 24H, Fishbone Vital Signs/I&O Vital Signs Date Time Temp Pulse Resp B/P (MAP) Pulse Ox O2 Delivery O2 Flow Rate FiO2 09/10/18 12:55 16 09/10/18 09:19 82 131/68 09/10/18 09:00 96 09/10/18 06:00 98.8 09/08/18 19:18 Room Air I&O- Last 24 Hours up to 6 AM 09/10/18 06:00 Intake Total 550 ml Output Total 2250 ml Balance -1700 ml Laboratory Data 24H LABS Laboratory Tests 2 09/10/18 06:03: Nucleated Red Blood Cells % (auto) 0.0, Anion Gap 4L, Glomerular Filtration Rate > 60.0, Blood Urea Nitrogen 8, Creatinine 0.50L, Sodium Level 131#L, Potassium Level 3.2L, Chloride Level 95L, Carbon Dioxide Level 32, Calcium Level 7.9L CBC/BMP Laboratory Tests 09/10/18 06:03 Red Blood Count 3.53 L, Mean Corpuscular Volume 90.4, Mean Corpuscular Hemoglobin 30.0, Mean Corpuscular Hemoglobin Concent 33.2, Red Cell Distribution Width 13.1, Calcium Level 7.9 L GME ATTESTATION GME ATTESTATION My faculty preceptor for this patient encounter was physically present during the encounter and was fully available. All aspects of the patient interview, examination, medical decision making process, and medical care plan development were reviewed and approved by the faculty preceptor. The faculty preceptor is aware and concurs with the plan as stated in the body of this note and will attest to such by his/her cosignature. JARED HECTOR DO September 10, 2018 14:28
[2018-09-10] MEDS: RIVAROXABAN 10 MG TAB (XARELTO) PO SCH (17:41)
[2018-09-10 21:18] VITALS: BP 108/56
[2018-09-10] MEDS: MAGNESIUM OXIDE 400 MG TAB (MAG-OX) PO SCH (21:18)
[2018-09-10 22:00] VITALS: BP 127/66
[2018-09-10 22:10] VITALS: BP 122/60
[2018-09-11] MEDS: PERCOCET 5MG/325MG TAB PO PRN ×5 (03:48→21:42)
[2018-09-11 06:00] VITALS: BP 110/63
[2018-09-11 06:22] LABS: HEMATOCRIT 32.7 % (36.0-47.0); HEMOGLOBIN 10.6 g/dl (12.0-15.5); MEAN CORPUSCULAR HEMOGLOBIN 28.8 pg (27.0-33.0); MEAN CORPUSCULAR HGB CONC 32.4 g/dl (32.0-36.5); MEAN CORPUSCULAR VOLUME 88.9 fl (80.0-96.0); PLATELET COUNT, AUTOMATED 281 10^3/uL (150-450); RED BLOOD COUNT 3.68 10^6/uL (4.00-5.40); WHITE BLOOD COUNT 5.4 10^3/uL (4.0-10.0)
[2018-09-11] MEDS ORDERED: MAG SULF 1GM/100ML (MAG RUN) 1 GM in APPROPRIATE DILUENT 1 EA IV ONE (07:30)
[2018-09-11] MEDS: MIRALAX *UNIT DOSE* 17GM PACKET PO SCH (07:44)
[2018-09-11] MEDS: DOCUSATE SODIUM 100 MG CAP PO SCH ×2 (07:44→21:41)
[2018-09-11] MEDS: ASPIRIN 325 MG TAB PO SCH ×2 (07:44→21:41)
[2018-09-11 07:45] LABS: BLOOD UREA NITROGEN 5 MG/DL (7-18); CALCIUM LEVEL 8.2 MG/DL (8.8-10.2); CARBON DIOXIDE LEVEL 33 MEQ/L (21-32); CHLORIDE LEVEL 99 MEQ/L (98-107); CREATININE FOR GFR 0.64 MG/DL (0.55-1.30); GLOMERULAR FILTRATION RATE > 60.0 (>45); GLUCOSE, FASTING 97 MG/DL (70-100); SODIUM LEVEL 136 MEQ/L (136-145)
[2018-09-11] MEDS: OMEPRAZOLE 20 MG CAP PO SCH (07:45)
[2018-09-11] MEDS: FUROSEMIDE 40 MG TAB PO SCH (07:46)
[2018-09-11] MEDS ORDERED: IBUPROFEN 600 MG TAB PO ONE (08:00)
[2018-09-11] MEDS ORDERED: POTASSIUM CHLORIDE 10 MEQ SR TABLET PO ONE (08:00)
--- NOTE | 2018-09-11 08:00 | IPNPDOC ---
Date Seen The patient was seen on 09/11/18. Progress Note SUBJECTIVE: Pt c/o neck pain. "I think I slept wrong. I usually don't sleep on my back." Per Ortho PA and per PT, pt has been weight bearing on her Left LE when she should not, and has been unable to ambulate due to severe pain. She is currently not safe for hospital discharge. Pt denies neck rigidity, fever, or chills. pain is worse when she tries to move her neck from side to side. PHYSICAL EXAMINATION: VITAL SIGNS: Please see below. GENERAL APPEARANCE: Alert and awake, pleasant and cooperative but appeared to be in mild distress and in pain. HEENT: Head normocephalic, atraumatic, conjunctiva and lids grossly normal, no scleral icterus. ROM neck flexion, extension, side to side intact but with pain. no cervical vertebral tenderness, or erythema of posterior neck. RESPIRATORY: CTA b/l, no rales, wheezing, or rhonchi. CARDIOVASCULAR: RRR, no murmur, normal S1 and S2 ABDOMEN: Soft, abdomen non-distended, bowel sound aus in all 4 quadrants, no tenderness upon touch EXTREMITIES: B/l upper extremities +5/5 strength. Pt able to move b/l lower extremity actively. Intact sensations with no numbness/tingling upon touch in b/l upper and lower extremities, and b/l LE intact with no gross open wound noted. Left knee postop changes. NEUROLOGICAL: Cognitive fxn and memory grossly intact LABORATORY DATA: Please see below. ASSESSMENT/PLAN: Pt is a 67 yo female with PMH of GERD and 2 prior accidental mechanical fall with prior injuries to b/l knees s/p right total knee originally scheduled for left total knee in September came to [facility] with left distal femur fracture s/p accidental mechanical fall. Pt reported that she was holding a plant pot in her hands and tripped then fell face down/onto her left knee. She reported that she did not injure anywhere else besides that after her fell the plant that she was holding was against her anterior chest wall. She reported 4/10 dull intermittent chest wall pain at the location of inferior sternum/xiphoid process that is aggravated by pressure and movement. Reported her left knee pain is 8/10 sharp constant pain; pain at both position were alleviated to pain meds and not moving. She also reported some nausea and dry heaving but no emesis Left distal femur fracture. Orthopedic group following pt and recommended left total knee. Dr. Sandy saw her inpt and Dr. García performed left total knee arthroplasty prior; she originally was scheduled for right total knee arthroplasty on 09/30/18. At this time Dr. Sandy recommends either non- weightbearing with crutches as well as hinged knee brace locked in full extension X > 6 weeks vs immediate ORIF f/u by removal of hardware and eventual total right knee arthroplasty. Morphine and Zofran PRN Neck pain. s/p 1 dose of ibuprofen. Hypokalemia: s/p potassium supplement. mg 2 GERD. Pt's output's med non-formulary. She denies any chest pain/heartburn; will be on Omeprazole, Carafate, and Tums. PMH of PVC with irregular heart rate. Pt denies any palpitation, HR RRR at time of examination. Pt currently on 5 daly and no remote tele on this floor; if symptoms occur or arrhythmia noted, may have pt on remote tele. Constipation. Pt reports medical hx of constipation with Miralax at home; denies current constipation. Pt will be on Miralax, Colace, milk of mag. Disposition: not safe for discharge. PT/OT. A-FIB/CHADSVASC A-FIB History Current/History of A-Fib/PAF?: No Current Oral Anticoagulant The: No VS, I&O, 24H, Fishbone Vital Signs/I&O Vital Signs Date Time Temp Pulse Resp B/P (MAP) Pulse Ox O2 Delivery O2 Flow Rate FiO2 09/11/18 07:46 20 09/11/18 07:45 72 110/63 09/11/18 06:00 98.7 98 09/08/18 19:18 Room Air I&O- Last 24 Hours up to 6 AM 09/11/18 06:00 Intake Total 1260 ml Output Total 3500 ml Balance -2240 ml Laboratory Data 24H LABS Laboratory Tests 2 09/11/18 05:48: Nucleated Red Blood Cells % (auto) 0.0 09/11/18 06:45: Anion Gap 4L, Glomerular Filtration Rate > 60.0, Blood Urea Nitrogen 5L, Creatinine 0.64, Sodium Level 136, Potassium Level 4.0#, Chloride Level 99, C arbon Dioxide Level 33H, Calcium Level 8.2L, Magnesium Level 2.0 CBC/BMP Laboratory Tests 09/11/18 05:48 Red Blood Count 3.68 L, Mean Corpuscular Volume 88.9, Mean Corpuscular He moglobin 28.8, Mean Corpuscular Hemoglobin Concent 32.4, Red Cell Distribution Width 13.3 09/11/18 06:45 Calcium Level 8.2 L DUKE GARCIA MD September 11, 2018 08:00
[2018-09-11] MEDS ORDERED: CYCLOBENZAPRINE 5MG TABLET PO ONE (13:00)
[2018-09-11] MEDS: IBUPROFEN 600 MG TAB PO PRN ×2 (13:58→23:39)
[2018-09-11 14:00] VITALS: BP 102/57
[2018-09-11] MEDS: RIVAROXABAN 10 MG TAB (XARELTO) PO SCH (17:02)
[2018-09-11] MEDS: MAGNESIUM OXIDE 400 MG TAB (MAG-OX) PO SCH (21:41)
[2018-09-11 22:00] VITALS: BP 133/60
[2018-09-11] MEDS: CYCLOBENZAPRINE 10 MG TAB PO SCH (23:39)
[2018-09-12] MEDS: PERCOCET 5MG/325MG TAB PO PRN ×2 (03:08→10:38)
[2018-09-12 06:00] VITALS: BP 121/59
[2018-09-12 06:08] LABS: HEMATOCRIT 30.8 % (36.0-47.0); HEMOGLOBIN 10.4 g/dl (12.0-15.5); MEAN CORPUSCULAR HEMOGLOBIN 30.8 pg (27.0-33.0); MEAN CORPUSCULAR HGB CONC 33.8 g/dl (32.0-36.5); MEAN CORPUSCULAR VOLUME 91.1 fl (80.0-96.0); PLATELET COUNT, AUTOMATED 273 10^3/uL (150-450); RED BLOOD COUNT 3.38 10^6/uL (4.00-5.40); WHITE BLOOD COUNT 6.1 10^3/uL (4.0-10.0)
[2018-09-12] MEDS ORDERED: XARE10TA PO (07:11)
[2018-09-12] MEDS ORDERED: PERC5TAB12 PO (07:11)
[2018-09-12] MEDS: SCOPOLAMINE 1MG TRANSDERMAL PATCH TOP SCH (08:02)
[2018-09-12] MEDS: OMEPRAZOLE 20 MG CAP PO SCH (08:03)
[2018-09-12] MEDS: DOCUSATE SODIUM 100 MG CAP PO SCH (08:03)
[2018-09-12 08:04] VITALS: BP 121/59
[2018-09-12] MEDS: CYCLOBENZAPRINE 10 MG TAB PO SCH (08:04)
[2018-09-12] MEDS: FUROSEMIDE 40 MG TAB PO SCH (08:04)
[2018-09-12] MEDS: ASPIRIN 325 MG TAB PO SCH (08:05)
[2018-09-12] MEDS: IBUPROFEN 600 MG TAB PO PRN (08:05)
[2018-09-12] MEDS: MIRALAX *UNIT DOSE* 17GM PACKET PO SCH (08:05)
[2018-09-12] MEDS: ONDANSETRON 4 MG TAB (S0181) PO PRN (10:37)
--- NOTE | 2018-09-12 10:46 | IPNPDOC ---
Date Seen The patient was seen on 09/12/18. Progress Note SUBJECTIVE:Pt's neck pain still bothers her, but improved with tramadol, flexeril if staggered. no fever or chills. knee immobilizer in place. no other issues per ortho. pt has help at home. PHYSICAL EXAMINATION: VITAL SIGNS: Please see below. GENERAL APPEARANCE: Alert and awake, pleasant and cooperative but appeared to be in mild distress and in pain. HEENT: Head normocephalic, atraumatic, conjunctiva and lids grossly normal, no scleral icterus. ROM neck flexion, extension, side to side intact but with pain. no cervical vertebral tenderness, or erythema of posterior neck. RESPIRATORY: CTA b/l, no rales, wheezing, or rhonchi. CARDIOVASCULAR: RRR, no murmur, normal S1 and S2 ABDOMEN: Soft, abdomen non-distended, bowel sound aus in all 4 quadrants, no tenderness upon touch EXTREMITIES: B/l upper extremities +5/5 strength. Pt able to move b/l lower extremity actively. Intact sensations with no numbness/tingling upon touch in b/l upper and lower extremities, and b/l LE intact with no gross open wound noted. Left knee postop changes. NEUROLOGICAL: Cognitive fxn and memory grossly intact LABORATORY DATA: Please see below. ASSESSMENT/PLAN: Pt is a 67 yo female with PMH of GERD and 2 prior accidental mechanical fall with prior injuries to b/l knees s/p right total knee originally scheduled for left total knee in September came to [facility] with left distal femur fracture s/p accidental mechanical fall. Pt reported that she was holding a plant pot in her hands and tripped then fell face down/onto her left knee. She reported that she did not injure anywhere else besides that after her fell the plant that she was holding was against her anterior chest wall. She reported 4/10 dull intermittent chest wall pain at the location of inferior sternum/xiphoid process that is aggravated by pressure and movement. Reported her left knee pain is 8/10 sharp constant pain; pain at both position were alleviated to pain meds and not moving. She also reported some nausea and dry heaving but no emesis Left distal femur fracture. Orthopedic group following pt and recommended left total knee. Dr. Sandy saw her inpt and Dr. García performed left total knee arthroplasty prior; she originally was scheduled for right total knee arthroplasty on 09/30/18. At this time Dr. Sandy recommends either non- weightbearing with crutches as well as hinged knee brace locked in full extension X > 6 weeks vs immediate ORIF f/u by removal of hardware and eventual total right knee arthroplasty. Morphine and Zofran PRN Neck pain. s/p 1 dose of ibuprofen. Hypokalemia: s/p potassium supplement. mg 2 GERD. Pt's output's med non-formulary. She denies any chest pain/heartburn; will be on Omeprazole, Carafate, and Tums. PMH of PVC with irregular heart rate. Pt denies any palpitation, HR RRR at time of examination. Pt currently on 5 daly and no remote tele on this floor; if symptoms occur or arrhythmia noted, may have pt on remote tele. Constipation. Pt reports medical hx of constipation with Miralax at home; denies current constipation. Pt will be on Miralax, Colace, milk of mag. Disposition: not safe for discharge. PT/OT. A-FIB/CHADSVASC A-FIB History Current/History of A-Fib/PAF?: No Current Oral Anticoagulant The: No VS, I&O, 24H, Fishbone Vital Signs/I&O Vital Signs Date Time Temp Pulse Resp B/P (MAP) Pulse Ox O2 Delivery O2 Flow Rate FiO2 09/12/18 08:04 71 121/59 09/12/18 06:00 96.9 20 96 09/08/18 19:18 Room Air I&O- Last 24 Hours up to 6 AM 09/12/18 06:00 Intake Total 1800 ml Output Total 1950 ml Balance -150 ml Laboratory Data 24H LABS Laboratory Tests 2 09/12/18 05:34: Nucleated Red Blood Cells % (auto) 0.0 CBC/BMP Laboratory Tests 09/12/18 05:34 Red Blood Count 3.38 L, Mean Corpuscular Volume 91.1, Mean Corpuscular Hemoglobin 30.8, Mean Corpuscular Hemoglobin Concent 33.8, Red Cell Distribution Width 13.2 DUKE GARCIA MD September 12, 2018 10:46
== END 2018-09-12 14:05 | disposition home or self-care (01) | DRG 340 ==
LOC: M ED 19:17 → EDBD 19:17 → M ED INP 22:42 → M MS5PR 09-09
PROVIDERS: ADMIT Orthopaedic Surgery Sports Medicine; ATTEND Orthopaedic Surgery Sports Medicine
DX: S72.492A Other fracture of lower end of left femur, initial encounter for closed fracture (principal); K21.9 Gastro-esophageal reflux disease without esophagitis; W18.30XA Fall on same level, unspecified, initial encounter; Y92.009 Unspecified place in unspecified non-institutional (private) residence as the place of occurrence of the external cause; Z79.899 Other long term (current) drug therapy; Z96.651 Presence of right artificial knee joint; K59.00 Constipation, unspecified

== ENCOUNTER → 2018-12-28 | Outpatient (CLI) | payer OTHER ==
[~2018-12-28] MED LIST changes: +ADVI200T PO; +ASPI-262 PO; +CALC-190 PO; -CODCAP4 PO; +CODCAP5 PO; +DIFL150T PO; +DILT30TA PO; +ESOM1CAP5 PO; +HM P99TA PO; +IBAN150T6 PO; +LANS30CA PO; +MAGN400C PO; +MULTCAP PO
--- NOTE | 2018-12-28 15:25 | REP ---
Chest x-ray: Two views. History: Total knee arthroplasty. Comparison chest x-ray September 08, 2018. Findings: The lungs are symmetrically hyperinflated but clear. Pleural angles are sharp. Heart size is normal. Pulmonary vasculature is not increased. There are mild degenerative changes in the thoracic spine. Pulmonary vasculature is not increased. Impression: Hyperinflation. Otherwise no active disease. Clips in the right upper quadrant of the abdomen. Electronically Signed by Abdoul Wise MD 12/28/2018 03:37 P
[2018-12-28 15:26] LABS: HEMATOCRIT 35.9 % (36.0-47.0); HEMOGLOBIN 11.9 g/dl (12.0-15.5); MEAN CORPUSCULAR HEMOGLOBIN 30.1 pg (27.0-33.0); MEAN CORPUSCULAR HGB CONC 33.1 g/dl (32.0-36.5); MEAN CORPUSCULAR VOLUME 90.7 fl (80.0-96.0); PLATELET COUNT, AUTOMATED 345 10^3/uL (150-450); RED BLOOD COUNT 3.96 10^6/uL (4.00-5.40)
[2018-12-28 15:36] LABS: INR 0.96; PROTHROMBIN TIME 12.5 SECONDS (11.8-14.0)
[2018-12-28 15:46] LABS: ERYTHROCYTE SEDIMENTATION RATE 15 mm/hr (0-30)
[2018-12-28 15:53] LABS: ALBUMIN 3.4 GM/DL (3.2-5.2); ALT/SGPT 18 U/L (12-78); BILIRUBIN,TOTAL 0.5 MG/DL (0.2-1.0); BLOOD UREA NITROGEN 13 MG/DL (7-18); CARBON DIOXIDE LEVEL 31 MEQ/L (21-32); CHLORIDE LEVEL 103 MEQ/L (98-107); CREATININE FOR GFR 0.71 MG/DL (0.55-1.30); GLOMERULAR FILTRATION RATE > 60.0 (>45); GLUCOSE, FASTING 84 MG/DL (70-100); POTASSIUM SERUM 4.3 MEQ/L (3.5-5.1); SODIUM LEVEL 140 MEQ/L (136-145); TOTAL PROTEIN 6.5 GM/DL (6.4-8.2)
--- NOTE | 2018-12-28 20:38 | ECGEPIP ---
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
== END ==
LOC: M RAD 14:12
PROVIDERS: ATTEND Orthopaedic Surgery
DX: Z01.818 Encounter for other preprocedural examination (principal); M17.12 Unilateral primary osteoarthritis, left knee; M51.34 Other intervertebral disc degeneration, thoracic region

== ENCOUNTER 2019-01-09 08:33 | Inpatient (IN) | payer OTHER ==
--- NOTE | 2019-01-05 11:05 | HPE ---
DATE OF ADMISSION: 01/09/2019 HISTORY OF PRESENT ILLNESS: This is a pleasant, 68-year-old female with continuing symptomatic left knee arthritis presentation. She has consented for a left total knee arthroplasty per Dr. Edmundo García. Unfortunately, she sustained a left femur fracture, shortlty after consenting for surgery booked for 09/30/2018. That has healed nicely. She has had no other medical issues and is ready to proceed with left knee replacement. Medical optimization was performed by Dr. Boyd on 01/02/2019, which the patient reports full clearance. I am awaiting that documentation. X-rays are consistent with advanced osteoarthritis. ALLERGIES: NONE KNOWN TO DRUGS. CURRENT MEDICATION LIST (includes): - ondansetron HCl 4 mg - Percocet 5/ 325 mg - Bactroban nasal 2% - Hibiclens 4% - calcium 600 mg - Lasix 40 mg - Nexium 40 mg - multivitamins - Vasotec 2.5 mg - aspirin 81 mg - Advil 200 mg - potassium 75 mg - magnesium 300 mg - calcium plus D 500-1000-40 mg-unt-mcg - Cardizem 60 mg MEDICAL PROBLEM LIST includes): 1. Symptomatic left knee osteoarthritis. 2. Anxiety and depression. SURGICAL HISTORY: Right total knee arthroplasty, bladder suspension, removal of gallbladder, total hysterectomy, jaw repair, bilateral elbow repair, partial mastectomy, cholecystectomy, right shoulder. FAMILY HISTORY: Hypertension, cancer, heart disease, thyroid disease, and hypercholesteremia. SOCIAL HISTORY: Former smoker, quit 35 years ago. Denies ethanol intake or illicit drugs. REVIEW OF SYSTEMS: Denies chest pain, shortness of breath, dyspnea on exertion, fever, chills, malaise, upper respiratory or urinary tract symptoms. LABS: Reviewed. RBC 3.96. Hemoglobin 11.9. Hematocrit 35.9. Anion gap 6. Chest x-ray was completed 12/28/2018, [facility] ([facility]): Hyperinflation, otherwise no acute disease. Clips in right upper quadrant of abdomen. EKG results read by Dr. Kidd, sinus bradycardia, as of 12/28/2018. PHYSICAL EXAMINATION: Height 67 inches. Weight 153. Temperature 96.9. Blood pressure 118/79. Pulse 71. Respiration 15. This is a pleasant, well-developed, white female, in no acute distress. She is alert and times three. Mood and affect are appropriate. She is ambulating without overt antalgic favoring noted about the right lower extremity. Previous old healed benign noninfectious looking right anterior vertical knee scar site consistent with a total knee replacement. Left knee positive joint line tenderness, crepitance about the knee through flexion and extension. She is limited by approximately 3 degrees, flexion is beyond 90. Compartments of the lower extremity are supple, soft, nontender, palpation grossly intact to light touch. Negative calf tenderness. Homans' sign, palpable cords. Bowel sounds times four, soft, nontender. Chest rises symmetrically. Lungs clear to auscultation. Chest: Regular rate and rhythm. Neck: Supple. Negative jugular venous distention (JVD) or bruits. Normocephalic. IMPRESSION: 1. Continuing symptomatic left knee degenerative joint disease (DJD). 2. The patient consented for a left total knee arthroplasty per Dr. Edmundo García. 3. Medical optimization per Dr. Daniele Boyd, which I am still awaiting clearance note. 4. For on-call to operating room (OR) 1 gram IV Kefzol. 5. Sequential compressive device (SCD) and thromboembolism deterrents (TEDs) in OR. MTDD
[~2019-01-09] VITALS: Ht 170.2 cm; Wt 68.0 kg
[~2019-01-09 08:33] MED LIST changes: +ACETAMINOPHEN 500 MG TAB PO ONE; +CODCAP4 PO; -CODCAP5 PO; -DIFL150T PO; +LIDOCAINE 2% INJ 100 MG/5 ML SDV (FOR ANES.) As Ordered ONE; +LR 1,000 ML IV ONE; +MIDAZOLAM INJ 2 MG/2 ML VIAL (J2250) As Ordered ONE; +ONDANSETRON 4MG/2ML VIAL (J2405) As Ordered ONE; +PROPOFOL 500 MG/50 ML VIAL As Ordered ONE; +dexameTHASONE 4 MG/ML 1ML VIAL (J1100) As Ordered ONE; +fentaNYL 100 MCG/2 ML INJECTION (J3010) As Ordered ONE
[2019-01-09] MEDS ORDERED: SCOPOLAMINE 1MG TRANSDERMAL PATCH As Ordered ONE (09:23)
[2019-01-09] MEDS ORDERED: EPINEPHrine INJ 1 MG/ML 1ML AMP As Ordered ONE (09:36)
[2019-01-09] MEDS ORDERED: ceFAZolin 1GM INJ (J0690 PER 500MG) As Ordered ONE (09:36)
[2019-01-09] MEDS ORDERED: TRANEXAMIC ACID 100 MG/ML 10ML VIAL As Ordered ONE (09:36)
[2019-01-09] MEDS ORDERED: BUPIVACAINE LIPOSOME/PF 1.3% 20ML VIAL (13.3MG/ML)(EXPAREL)(C9290 PER1MG) As Ordered ONE (09:36)
[2019-01-09] MEDS ORDERED: BUPIVACAINE HCL 0.25% 10 ML VIAL As Ordered ONE (09:36)
[2019-01-09] MEDS ORDERED: fentaNYL 100 MCG/2 ML INJECTION (J3010) As Ordered ONE (09:40)
[2019-01-09] MEDS ORDERED: MIDAZOLAM INJ 2 MG/2 ML VIAL (J2250) As Ordered ONE (09:40)
[2019-01-09] MEDS ORDERED: SCOPOLAMINE 1MG TRANSDERMAL PATCH TOP ONE (09:45)
[2019-01-09] MEDS ORDERED: fentaNYL 100 MCG/2 ML INJECTION (J3010) IV ONE (10:15)
[2019-01-09] MEDS ORDERED: MIDAZOLAM INJ 2 MG/2 ML VIAL (J2250) IV ONE (10:15)
[2019-01-09] MEDS ORDERED: ePHEDrine SULFATE 25 MG/5 ML(5MG/ML) SYRINGE As Ordered ONE (11:15)
[2019-01-09] MEDS ORDERED: ACETAMINOPHEN 1000MG 100ML IV BTL (OFIRMEV) (J0131 PER 10MG) As Ordered ONE (11:26)
[2019-01-09] MEDS ORDERED: ACETAMINOPHEN TAB 650MG DOSE (2X325MG) PO PRN (13:00)
[2019-01-09] MEDS ORDERED: FLEET ENEMA PR PRN (13:00)
--- NOTE | 2019-01-09 13:14 | REP ---
Left knee three views postoperative study: There is a total knee arthroplasty with the components tightly applied and in satisfactory positions alignment. There are skin dez. There is intra-articular air as a postoperative change. There is a foreign body in or on the the soft tissues lateral to the tibial metaphysis. Electronically Signed by Levi Balderrama MD 01/09/2019 01:06 P
[2019-01-09] MEDS: LR 1,000 ML IV SCH (13:15)
[2019-01-09] MEDS ORDERED: LR 1,000 ML IV SCH (13:15)
[2019-01-09] MEDS ORDERED: oxyCODONE 5MG TAB PO PRN (13:15)
[2019-01-09] MEDS ORDERED: ONDANSETRON 4MG/2ML VIAL (J2405) IV PRN (13:15)
[2019-01-09] MEDS ORDERED: fentaNYL 100 MCG/2 ML INJECTION (J3010) IV PRN (13:15)
[2019-01-09 13:45] VITALS: BP 138/76
[2019-01-09] MEDS ORDERED: ROPIvacaine 0.5% 30 ML INJECTION (J2795 PER 1MG) ONE (13:47)
[2019-01-09] MEDS ORDERED: dexameTHASONE 10 MG/1 ML VIAL PRES.FREE (J1100) ONE (13:47)
[2019-01-09] MEDS ORDERED: EPINEPHrine INJ 1 MG/ML 1ML AMP ONE (13:47)
[2019-01-09 14:15] VITALS: BP 128/66
[2019-01-09] MEDS ORDERED: HYDROMORPHONE HCL 0.5 MG/ 0.5 ML SYRINGE (J1170 PER 1) IV PRN ×2 (14:15)
--- NOTE | 2019-01-09 14:37 | CR.PDOC ---
General Date of Consultation: Jan 09, 2019 Referring Provider: Diana García Primary Care Physician: VERN CASTRO M.D. Attending Physician: MARY HADLEY MD Consultation REASON FOR CONSULTATION/: Management of chronic medical conditions HISTORY OF PRESENT ILLNESS: 68 year old female who presented for L-total knee arthroplasty in the setting of symptomatic left knee arthritis. She was scheduled to have this done in September of 2018, but sustained a L-distal femoral fracture requiring rescheduling. Hospitalist service has been consulted for medical management. Her surgery was without obvious complication per the patient and her and she currently has no complaints at this time. ALLERGIES: Please see below. HOME MEDICATIONS: Please see below. 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 No tobacco use (quit 35 years ago), no alcohol use, no illicit drug use including marijuana, heroin, cocaine, PCP. REVIEW OF SYSTEMS: GENERAL: Denies fevers, chills, recent unexpected weight change, night sweats, hemoptysis HEENT: Denies headache, dizziness, vision changes, hearing loss, sore throat CARDIOVASCULAR: Denies chest pain, palpitations, orthopnea RESPIRATORY: Denies shortness of breath, wheezing, cough GASTROINTESTINAL: denies nausea, vomiting, abdominal pain, constipation, diarrhea, bloody stool GENITOURINARY: Denies dysuria,urinary urgency, hematuria. MUSCULOSKELETAL: Denies muscle/joint pain, weakness, stiffness NEUROLOGICAL: Denies any numbness/tingling, focal weakness, or syncope PHYSICAL EXAMINATION: Vitals: (see below) General: No acute distress, laying comfortably in bed. HEENT: Normocephalic, atraumatic. EOMI. No scleral icterus. Moist mucous membranes. No pharyngeal erythema or uvular deviation. Neck: No JVD, lymphadenopathy, or thyromegaly. Cardiac: RRR, Normal S1 and S2, No murmurs, gallops, rubs. Pulm: Clear to auscultation b/l. Symmetric thorax. No wheezing, crackles, rhonchi Abd: Bowel Sounds present. Abdomen is soft, non-tender, non-distended. Ext: 1+ bilateral pitting edema. Neuro: No focal neuro deficits LABORATORY DATA: Please see below. ASSESSMENT/PLAN: #. S/p L-total knee arthroplasty - Management per orthopedic service. - Pain medications per orthopedic service #. Irregular Heart beat (?PVCs per EMR) - Regular heart rate appreciate on exam, will continue to monitor - Has been on diltiazem for a number of years, managed by Dr. Vogt, will continue home medication. #. GERD - home medication substitutions made, patient on omeprazole BID #. Lower extremity edema - Patient has chronic symptomatic lower extremity edema relieved with lasix, will continue with home dose. #. Bowel care - Patient takes miralax daily so she can have regular bowel movements, will continue home miralax #. Dyslipidemia -Patient unable to tolerate statin so has been taking red rice yeast, patient may resume medication outpatient. DVT prophylaxis: Per ortho service. Vital Signs/I&O Vital Signs Date Time Temp Pulse Resp B/P (MAP) Pulse Ox O2 Delivery O2 Flow Rate FiO2 01/09/19 13:32 97.4 68 16 130/74 (92) 97 01/09/19 10:40 2 Allergies Coded Allergies: No Known Allergies (Unverified , 01/09/19) Home Medications Scheduled Calcium Carbonate/Vitamin D3 (Calcium 1,000 + D3 Caplet) 1 Each Tablet, 1 TAB PO DAILY, (Reported) Diltiazem HCl (Diltiazem HCl) 30 Mg Tablet, 30 MG PO BID, (Reported) Esomeprazole Magnesium (Esomeprazole Magnesium) 40 Mg Capsule.dr, 40 MG PO QPM, (Reported) Furosemide (Lasix) 40 Mg Tablet, 40 MG PO DAILY, (Reported) Lansoprazole (Lansoprazole) 30 Mg Capsule.dr, 30 MG PO DAILY, (Reported) Magnesium Oxide (Magnesium) 400 Mg Capsule, 400 MG PO QPM, (Reported) Multivitamin (Multivitamins) 1 Each Capsule, 1 CAP PO QPM, (Reported) Polyethylene Glycol 3350 (Miralax) 119 Gm Powder, 17 GM PO QHS, (Reported) Potassium Gluconate (Potassium) 99 Mg Tablet, 99 MG PO QPM, (Reported) Red Yeast Rice (Red Yeast Rice) 600 Mg Tablet, 1,200 MG PO BID, (Reported) Ubidecarenone (Co Q-10) 10 Mg Capsule, 10 MG PO QPM, (Reported) Scheduled PRN Ibuprofen (Advil) 200 Mg Tablet, 600 MG PO Q6H PRN for PAIN, (Reported) GME ATTESTATION GME ATTESTATION My faculty preceptor for this patient encounter was physically present during the encounter and was fully available. All aspects of the patient interview, examination, medical decision making process, and medical care plan development were reviewed and approved by the faculty preceptor. The faculty preceptor is aware and concurs with the plan as stated in the body of this note and will attest to such by his/her cosignature. ATTENDING NOTE I, Mary Hadley, have independently examined this patient and performed my own physical exam, as well as reviewed the documentation and edited where necessary. I have discussed in detail with the resident / student the findings and plan of treatment as documented by the resident / student and edited their note. I agree with their findings and treatment plan and have edited their documentation. I will continue to follow the patient during this hospital stay. LOLA GRAHAM DO Jan 09, 2019 14:36 MARY HADLEY MD Jan 09, 2019 15:44
[2019-01-09 14:49] VITALS: BP 137/65
[2019-01-09 15:39] VITALS: BP 132/74
[2019-01-09] MEDS: PERCOCET 5MG/325MG TAB PO PRN ×2 (15:46→20:10)
[2019-01-09 17:35] VITALS: BP 133/73
[2019-01-09] MEDS: OMEPRAZOLE 20 MG CAP PO SCH (20:09)
[2019-01-09] MEDS ORDERED: MIRALAX *UNIT DOSE* 17GM PACKET PO SCH (21:00)
[2019-01-09] MEDS ORDERED: MAGNESIUM OXIDE 400 MG TAB (MAG-OX) PO SCH (21:00)
[2019-01-09 22:00] VITALS: BP 103/54
[2019-01-10] MEDS: LR 1,000 ML IV SCH (01:43)
[2019-01-10 02:00] VITALS: BP 96/53
[2019-01-10] MEDS: PERCOCET 5MG/325MG TAB PO PRN ×2 (03:27→08:48)
[2019-01-10 06:00] VITALS: BP 111/62
[2019-01-10] MEDS ORDERED: PERCOCET 5MG/325MG TAB PO PRN (06:30)
[2019-01-10 06:32] LABS: HEMATOCRIT 29.3 % (36.0-47.0); MEAN CORPUSCULAR HEMOGLOBIN 30.5 pg (27.0-33.0); MEAN CORPUSCULAR HGB CONC 34.1 g/dl (32.0-36.5); MEAN CORPUSCULAR VOLUME 89.3 fl (80.0-96.0); PLATELET COUNT, AUTOMATED 308 10^3/uL (150-450); RED BLOOD COUNT 3.28 10^6/uL (4.00-5.40); WHITE BLOOD COUNT 11.3 10^3/uL (4.0-10.0)
[2019-01-10] MEDS ORDERED: XARE10TA PO (06:34)
[2019-01-10] MEDS ORDERED: PERC5TAB12 PO (06:34)
[2019-01-10 06:53] LABS: BLOOD UREA NITROGEN 6 MG/DL (7-18); CALCIUM LEVEL 8.6 MG/DL (8.8-10.2); CARBON DIOXIDE LEVEL 27 MEQ/L (21-32); CHLORIDE LEVEL 103 MEQ/L (98-107); CREATININE FOR GFR 0.63 MG/DL (0.55-1.30); GLOMERULAR FILTRATION RATE > 60.0 (>45); GLUCOSE, FASTING 121 MG/DL (70-100); POTASSIUM SERUM 3.8 MEQ/L (3.5-5.1); SODIUM LEVEL 137 MEQ/L (136-145)
[2019-01-10] MEDS ORDERED: DIFL150T PO (07:46)
[2019-01-10] MEDS: OMEPRAZOLE 20 MG CAP PO SCH (08:48)
[2019-01-10 08:50] VITALS: BP 102/63
[2019-01-10] MEDS ORDERED: FUROSEMIDE 40 MG TAB PO SCH (09:00)
[2019-01-10] MEDS ORDERED: FLUCONAZOLE 50MG TABLET PO ONE (09:00)
[2019-01-10] MEDS ORDERED: MOM 30ML SUSPENSION UDC PO SCH (09:00)
--- NOTE | 2019-01-10 09:54 | RO ---
DATE OF OPERATION: 01/09/2019 PREOPERATIVE DIAGNOSIS: Left knee degenerative arthritis. POSTOPERATIVE DIAGNOSIS: Left knee degenerative arthritis. PROCEDURE: Left total knee arthroplasty using a size 5 cruciate-retaining Attune cemented femoral component with a size 4 tibial tray and a 6 mm polyethylene insert and a 35 mm polyethylene button. The prosthesis was made by [employer]. It was an Attune knee. SURGEON: Diana García MD MARBLEIZER: Nida Tadeo ANESTHESIA: Left femoral nerve block with a spinal. COMPLICATIONS: None. ESTIMATED BLOOD LOSS: 20 mL. SPECIMENS: Joint surface. DESCRIPTION OF PROCEDURE: Antibiotics were given intravenously preoperatively, and a successful left femoral nerve block and then spinal anesthetic was induced. The tourniquet was placed on the left upper thigh and not inflated. The left lower extremity was carefully prepped and draped in the usual sterile fashion and elevated. Then, after appropriate time-out, the tourniquet was inflated, and then a longitudinal incision was made for a medial parapatellar approach to the knee. Bovie cautery was used to coagulate crossing vessels. Subperiosteal dissection around the proximal medial and lateral tibial plateau was performed. The patella was everted and the knee flexed. The anterior cruciate ligament (ACL) debrided. Drill placed down the center of the femoral canal, followed by the intramedullary lauren, the distal femoral cutting jig set at a 9 mm resection level at 5 degree valgus for a left knee. The block was pinned in position. Distal femoral cut performed. AP sizing jig measured for a size #5. 3 degrees of external rotation were dialed in, pins placed, 4-in-1 block applied, and the anterior and posterior chamfer cuts performed, taking great care to protect the surrounding soft tissues. The notch across the jig was then placed and a notchplasty performed. We then exposed the proximal tibia, used the extramedullary tibial guide to estimate being parallel to the mechanical axis, referencing off the medial tibial condyle at 4 mm resection level. The block was pinned into position. A secondary check with the extramedullary lauren confirmed we appeared to be parallel to the mechanical axis. The proximal tibial osteotomy was thus performed. The lamina heat seal operator was then placed laterally, and we performed a completion of medial meniscectomy, debriding the posterior and medial osteophytes, and then placed the lamina heat seal operator medially, and performed a completion of lateral meniscectomy debriding the posterior and lateral osteophytes. The 6 mm sizing jig was a bit snug at both flexion and in extension. Thus, I reapplied the tibial block, took an additional 2 mm after reapplying the block into position, and then the 6 mm fit very nicely in both flexion and in extension, and it was quite stable to varus and valgus stress testing. We then exposed the proximal tibia, sized for a #4 tibial tray, which was pinned into position, followed by the reamer and broach. The trial polyethylene was placed, followed by the trial femoral component, and the knee was brought into extension, patella everted, patellar osteotomy performed, sized for a 35 button. The lug holes were drilled. The trial placed. Patellofemoral tracking was anatomic. We then drilled the lug holes for the femur, then removed the trials. Exparel was placed in the subperiosteal tissues around the distal femur and the proximal tibia, and then we began preparing the bony surfaces for cementing with a copious amount of pulsatile lavage irrigant solution; and as I was doing this, Ms. Nida Tadeo mixed the cement on the back table. She was also critical to the success of this difficult surgery by helping with appropriate soft tissue manipulation, helped to manipulate the knee, helped to close the wound, helped mix the cement, amongst many other tasks to allow me to perform the operation smoothly and efficiently and safely. Once we were done copiously irrigating, we thoroughly dried all the bony surfaces, then cemented the tibial tray, removing excess cement, and placed the polyethylene, and then cemented the femoral component, removed excess cement, and then brought the knee into full extension, everted the patella, and cemented the patella button, held it with a clamp, removed excess cement, and held this position in extension until the cement had hardened; and as we were awaiting this, we copiously pulsatile lavage irrigated out the knee joint, and then placed tranexamic acid, and then began closing the apex of the arthrotomy with two #1 polydioxanone suture (PDS) sutures, and the medial parapatellar area was closed with a #1 PDS suture, and then the capsule was closed with a running double-armed #1 Stratafix. Then, the tourniquet was released. We irrigated between layers, closed the deep subdermal tissues with interrupted 2-0 PDS sutures. The skin was closed with dez, covered by an Optifoam dry sterile bulky dressing. She was then transferred to the recovery room in stable condition. There were no intraoperative complications.
[2019-01-10] MEDS ORDERED: ONDANSETRON 4MG/2ML VIAL (J2405) IV PRN (11:00)
[2019-01-10] MEDS ORDERED: MORPHINE 15 MG SA TAB PO ONE (11:00)
--- NOTE | 2019-01-10 11:24 | IPNPDOC ---
Text Note Date of Service The patient was seen on 01/10/19. NOTE SUBJECTIVE: No acute events overnight. Post day 1 s/p L-TKA. Pain is well con trolled, she has been mobile to the bathroom. Patient states she typically will get a one time dose of diflucan following antibiotics as she will develop a yeast infection otherwise. Otherwise, she denies any fevers, chills, chest pain, shortness of breath, abdominal pain, or increased swelling in lower extremities. PHYSICAL EXAMINATION: Vitals: (see below) General: No acute distress, sitting up comfortably in bed. HEENT: Normocephalic, atraumatic. EOMI. No scleral icterus. Moist mucous membranes. Neck: No JVD, lymphadenopathy, or thyromegaly. Cardiac: RRR, Normal S1 and S2, systolic murmur best heard at left-2nd intercostal space. Pulm: Clear to auscultation b/l. Symmetric thorax. No wheezing, crackles, rhonchi Abd: Bowel Sounds present. Abdomen is soft, non-tender, non-distended. Ext: 1+ bilateral pitting edema. dressing in place over LLE. Neuro: No focal neuro deficits LABORATORY DATA: Please see below. ASSESSMENT/PLAN: #. S/p L-total knee arthroplasty - Management per orthopedic service. - Pain medications per orthopedic service #. Irregular Heart beat - Patient has been following with Dr. Vogt for a number of years and has been on the same medication for this irregular heart beat, we will order an EKG just to rule out any concerning pathologies. I have a low clinical suspicion for any concerning findings, but encouraged the patient to schedule an appointment with Dr. Vogt to have her systolic murmur evaluated. Will continue home diltiazem dose for now. #. GERD - home medication substitutions made, patient on omeprazole BID #. Lower extremity edema - Patient has chronic symptomatic lower extremity edema relieved with lasix, will continue with home dose. #. Bowel care - Patient takes miralax daily so she can have regular bowel movements, will continue home miralax #. Dyslipidemia -Patient unable to tolerate statin so has been taking red rice yeast, patient may resume medication outpatient. DVT prophylaxis: Per ortho service. VS,Fishbone, I+O VS, Fishbone, I+O Laboratory Tests 01/10/19 06:10 Red Blood Count 3.28 L, Mean Corpuscular Volume 89.3, Mean Corpuscular Hemog lobin 30.5, Mean Corpuscular Hemoglobin Concent 34.1, Red Cell Distribution Width 13.6, Calcium Level 8.6 L Vital Signs Date Time Temp Pulse Resp B/P (MAP) Pulse Ox O2 Delivery O2 Flow Rate FiO2 01/10/19 09:44 16 01/10/19 08:50 69 102/63 01/10/19 06:00 98.0 98 01/09/19 10:40 2 I&O- Last 24 Hours up to 6 AM 01/10/19 05:59 Intake Total 3540 ml Output Total 4670 ml Balance -1130 ml GME ATTESTATION GME ATTESTATION My faculty preceptor for this patient encounter was physically present during the encounter and was fully available. All aspects of the patient interview, examination, medical decision making process, and medical care plan development were reviewed and approved by the faculty preceptor. The faculty preceptor is aware and concurs with the plan as stated in the body of this note and will attest to such by his/her cosignature. LOLA GRAHAM DO Jan 10, 2019 11:24
[2019-01-10] MEDS ORDERED: RIVAROXABAN 10 MG TAB (XARELTO) PO SCH (18:00)
--- NOTE | 2019-01-11 10:20 | ECGEPIP ---
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
== END 2019-01-10 14:45 | disposition home or self-care (01) | DRG 302 ==
LOC: M OR 08:33 → M MS5PR 13:40
PROVIDERS: ADMIT Orthopaedic Surgery; ATTEND Orthopaedic Surgery
PROC: 0SRD0J9 Replacement of Left Knee Joint with Synthetic Substitute, Cemented, Open Approach (ICD-10-PCS; principal; 2019-01-09 11:00)
DX: M17.12 Unilateral primary osteoarthritis, left knee (principal); I10 Essential (primary) hypertension; Z79.899 Other long term (current) drug therapy; Z79.82 Long term (current) use of aspirin; F41.9 Anxiety disorder, unspecified; F32.9 Major depressive disorder, single episode, unspecified; Z96.651 Presence of right artificial knee joint; Z85.3 Personal history of malignant neoplasm of breast; K21.9 Gastro-esophageal reflux disease without esophagitis; E78.5 Hyperlipidemia, unspecified; E55.9 Vitamin D deficiency, unspecified; E78.00 Pure hypercholesterolemia, unspecified; R91.1 Solitary pulmonary nodule

== ENCOUNTER 2019-01-25 12:21 | Emergency (ER) | payer OTHER ==
[~2019-01-25] VITALS: Ht 170.2 cm; Wt 73.4 kg
[~2019-01-25 12:21] MED LIST changes: -ACETAMINOPHEN 500 MG TAB PO ONE; +DIFL150T PO; -LIDOCAINE 2% INJ 100 MG/5 ML SDV (FOR ANES.) As Ordered ONE; -LR 1,000 ML IV ONE; -MIDAZOLAM INJ 2 MG/2 ML VIAL (J2250) As Ordered ONE; -ONDANSETRON 4MG/2ML VIAL (J2405) As Ordered ONE; -PROPOFOL 500 MG/50 ML VIAL As Ordered ONE; -dexameTHASONE 4 MG/ML 1ML VIAL (J1100) As Ordered ONE; -fentaNYL 100 MCG/2 ML INJECTION (J3010) As Ordered ONE
[2019-01-25] MEDS ORDERED: NITROGLYCERIN 0.4 MG SUBL TABLET SL STA (12:47)
[2019-01-25 12:58] LABS: BASO # 0.1 10^3/uL (0.0-0.2); EOS # 0.1 10^3/uL (0.0-0.5); EOS % 1.4 % (0.0-3.0); HEMATOCRIT 35.3 % (36.0-47.0); HEMOGLOBIN 11.5 g/dl (12.0-15.5); LYMPH # 1.2 10^3/uL (1.5-5.0); LYMPH % 23.5 % (24.0-44.0); MEAN CORPUSCULAR HEMOGLOBIN 29.8 pg (27.0-33.0); MEAN CORPUSCULAR HGB CONC 32.6 g/dl (32.0-36.5); MEAN CORPUSCULAR VOLUME 91.5 fl (80.0-96.0); MONO # 0.5 10^3/uL (0.0-0.8); MONO % 9.8 % (0.0-5.0); NEUTROPHILS # 3.3 10^3/uL (1.5-8.5); NEUTROPHILS % 64.1 % (36.0-66.0); PLATELET COUNT, AUTOMATED 537 10^3/uL (150-450); RED BLOOD COUNT 3.86 10^6/uL (4.00-5.40); WHITE BLOOD COUNT 5.1 10^3/uL (4.0-10.0)
[2019-01-25] MEDS ORDERED: ASPIRIN 81 MG CHEW TABLET PO ONE (13:00)
--- NOTE | 2019-01-25 13:23 | REP ---
CHEST, SINGLE VIEW: There is no evidence of acute infiltrate. No pleural effusion is seen. The heart is normal in size. The mediastinal silhouette is unremarkable. The visualized osseous structures are intact. IMPRESSION: No acute pulmonary disease. Electronically Signed by Levi Cifuentes MD 01/26/2019 09:03 A
[2019-01-25 13:25] LABS: BLOOD UREA NITROGEN 12 MG/DL (7-18); CALCIUM LEVEL 9.5 MG/DL (8.8-10.2); CARBON DIOXIDE LEVEL 31 MEQ/L (21-32); CHLORIDE LEVEL 97 MEQ/L (98-107); CK-MB VALUE MASS 1.9 NG/ML (<3.6); CPK CREATINE PHOSPHOKINASE 83 U/L (26-192); GLOMERULAR FILTRATION RATE > 60.0 (>45); GLUCOSE, FASTING 103 MG/DL (70-100); MB/CK RELATIVE INDEX 2.29 (< OR =4); POTASSIUM SERUM 4.1 MEQ/L (3.5-5.1); SODIUM LEVEL 136 MEQ/L (136-145); TROPONIN I < 0.02 NG/ML (< 0.10)
[2019-01-25] MEDS ORDERED: ISOVUE-370 76% 100ML VIAL (Q9967) As Ordered ONE (13:34)
[2019-01-25 13:36] VITALS: BP 142/69
--- NOTE | 2019-01-25 14:00 | REP ---
CT pulmonary angiogram: With IV contrast. History: Chest pain. Recent knee replacement. Rule out pulmonary embolus. Comparison studies: No comparison CT study. Comparison is made with chest x-ray from earlier this date. Contrast dose: 75 ML of Isovue [address] technique: Helical scanning is acquired and overlapping 1.5 mm and contiguous 3 mm axial images are reformatted. In addition, maximum intensity projection and multiplanar re-formation images are generated in sagittal and coronal imaging projections. CT pulmonary angiographic findings: There is good opacification of the pulmonary arterial tree. There is no CT evidence of pulmonary embolism. Thoracic aorta enhances normally without evidence of aneurysm or dissection. Maximal intensity projection images show no vessel cutoff or filling defect. There is no evidence of pleural or pericardial effusion. No adrenal lesion is seen. No hilar or mediastinal mass or adenopathy is observed. Lung window settings show no evidence of pulmonary mass or significant nodule. No infiltrate is seen. No acute bony abnormality is appreciated. There is a granulomatous calcification in the spleen. The visualized upper abdominal structures are otherwise unremarkable. Impression: No CT evidence of pulmonary embolus. No active cardiopulmonary disease seen. Electronically Signed by Abdoul Wise MD 01/25/2019 01:53 P
[2019-01-25] MEDS ORDERED: PERCOCET 5MG/325MG TAB PO ONE (15:00)
[2019-01-25 18:38] LABS: CK-MB VALUE MASS 1.1 NG/ML (<3.6); CPK CREATINE PHOSPHOKINASE 65 U/L (26-192); MB/CK RELATIVE INDEX 1.69 (< OR =4); TROPONIN I < 0.02 NG/ML (< 0.10)
[2019-01-25 19:15] VITALS: BP 137/74
--- NOTE | 2019-01-25 20:46 | ECGEPIP ---
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
--- NOTE | 2019-01-25 20:51 | ECGEPIP ---
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
== END 2019-01-25 19:28 | disposition home or self-care (01) ==
LOC: M ED 12:21
DX: R07.89 Other chest pain (principal); I51.9 Heart disease, unspecified; K21.9 Gastro-esophageal reflux disease without esophagitis; Z87.01 Personal history of pneumonia (recurrent); Z85.3 Personal history of malignant neoplasm of breast; Z79.899 Other long term (current) drug therapy
CPT/HCPCS: 71045; 71275; 80048; 82550; 82553; 84443; 84484; 85025; 93005; 93041; 94760; 99285; Q9967

== ENCOUNTER → 2019-06-06 | Outpatient (CLI) | payer OTHER ==
[~2019-06-06] MED LIST changes: -CODCAP4 PO; +CODCAP5 PO
--- NOTE | 2019-06-07 08:28 | REP ---
PET/CT: History: Solitary pulmonary nodule. Personal history of breast carcinoma. Comparisons: Comparison CT study of the chest from May 17, 2019 and January 25, 2019. The most recent CT study showed an irregularly shaped new nodular opacity in the left upper lobe not visible on the January 25, 2019 study. TECHNIQUE: 50 minutes following the intravenous injection of a 8.67 mCi dose of F-18 FDG, three-dimensional PET scintigraphy is acquired from the skull base to the proximal thighs. Triplanar noncontrast CT scanning is acquired through the same anatomic range for attenuation correction, and image registration with scan parameters optimized to minimize radiation exposure to the patient. PET scintigraphy and CT datasets were fused and displayed on a workstation with multiplanar and projection display capability. PET/CT Findings: Head and neck soft tissues are unremarkable. The previously noted irregularly shaped opacity in the anterior aspect of the left upper lobe is again seen although morphologically it is improved and more linear in appearance. It is mildly hypermetabolic with maximum standard uptake value 2.98. There are new ground-glass opacities in a cluster adjacent to one another in the right upper lobe. These show mildly increased but not hypermetabolic uptake. Maximum standard uptake value in the two principal component to this ground-glass opacity are 1.95 and 1.83. These ground-glass opacities are new when compared with the May 17, 2019 study. The pulmonary parenchymal findings are suggestive of inflammatory disease given the waxing and waning nature and the improved morphology of the left upper lobe opacity. There is no abnormal hilar or mediastinal hypermetabolic uptake. In the abdomen and pelvis, there is normal distribution of radiotracer. No abnormal hypermetabolic uptake is seen. Impression: Mild hypermetabolic uptake in the left upper lobe opacity identified on the most recent prior CT study. This is improved morphologically in the interval since the May 17, 2019 study. There are new ground-glass opacities in the right upper lobe. The pulmonary parenchymal findings suggest inflammatory etiology. Otherwise negative PET/CT. CT followup is advised. Electronically Signed by Abdoul Wise MD 06/07/2019 04:05 P
== END ==
LOC: M PLARAD 09:42
PROVIDERS: ATTEND Family Medicine
DX: R91.1 Solitary pulmonary nodule (principal); Z86.000 Personal history of in-situ neoplasm of breast
CPT/HCPCS: 78815; A9552

== ENCOUNTER → 2019-06-20 | Outpatient (CLI) | payer OTHER ==
[2019-06-20 13:22] LABS: BASO # 0.1 10^3/uL (0.0-0.2); BASO % 1.1 % (0.0-1.0); EOS # 0.1 10^3/uL (0.0-0.5); EOS % 2.2 % (0.0-3.0); HEMOGLOBIN 11.4 g/dl (12.0-15.5); LYMPH # 1.5 10^3/uL (1.5-5.0); MEAN CORPUSCULAR HEMOGLOBIN 28.4 pg (27.0-33.0); MEAN CORPUSCULAR HGB CONC 33.5 g/dl (32.0-36.5); MEAN CORPUSCULAR VOLUME 84.6 fl (80.0-96.0); MONO # 0.5 10^3/uL (0.0-0.8); MONO % 11.2 % (0.0-5.0); NEUTROPHILS # 2.3 10^3/uL (1.5-8.5); NEUTROPHILS % 51.3 % (36.0-66.0); PLATELET COUNT, AUTOMATED 361 10^3/uL (150-450); RED BLOOD COUNT 4.02 10^6/uL (4.00-5.40); WHITE BLOOD COUNT 4.5 10^3/uL (4.0-10.0)
[2019-06-20 13:59] LABS: ERYTHROCYTE SEDIMENTATION RATE 25 mm/hr (0-30)
== END ==
LOC: M PLALAB 11:47
PROVIDERS: ATTEND Internal Medicine Pulmonary Disease
DX: R91.8 Other nonspecific abnormal finding of lung field (principal)

== ENCOUNTER → 2019-09-08 | Outpatient (CLI) | payer OTHER ==
--- NOTE | 2019-09-08 12:19 | REP ---
REASON FOR EXAM: Followup. All priors were reviewed including an outside examination of 05/17/2019. There is no mediastinal or hilar adenopathy. There are no pleural or pericardial effusions. There is no change in the imaged upper abdomen or imaged osseous structures. Evaluation of the lung link shows resolution of the somewhat irregular nodule seen in the left upper lobe anterior segment on the 05/17/2019 exam. In addition, a few scattered ground-glass opacities, also seen on that latest prior exam, have all resolved. There are a few tiny asymmetric densities in the left lower lobe which represent a change from all prior exams. There is a minimal asymmetric density in the anterior segment of the left upper lobe. IMPRESSION: 1. No new abnormal nodule, however, subtle asymmetric left lower lobe densities. There is no revised Fleischner Society criteria on the recommended for followup of such a finding. This finding should be followed up based on clinical assessment. 2. Subtle minimal asymmetric densities anterior segment left upper lobe with resolution of the previously present large irregular left upper lobe density, which was seen best on the 05/17/2019 exam. Again, this should be followed up based on clinical assessment. 3. No other abnormalities noted. Findings as described above. Electronically Signed by Aleks Perla DO 09/08/2019 12:21 P
== END ==
LOC: M RAD 09:50
PROVIDERS: ATTEND Internal Medicine Pulmonary Disease
DX: R91.8 Other nonspecific abnormal finding of lung field (principal)

== ENCOUNTER → 2020-03-18 | Outpatient (CLI) | payer BC, MEDICARE ==
--- NOTE | 2020-03-18 11:55 | REP ---
INDICATION: ABN FINDING OF LUNG FIELD COMPARISON: 09/08/2019, 05/17/2019 TECHNIQUE: Axial noncontrast images from the thoracic inlet to the upper abdomen with coronal and sagittal reformations. This CT examination was performed using the following dose reduction techniques: Automated exposure control, adjustment of mA and/or kv according to the patient's size, and use of iterative reconstruction technique. FINDINGS: The bilateral lung link are relatively well aerated. Previously identified area of nodular consolidation in the left upper lobe has resolved and very small scattered ground-glass densities are identified as well as a new small area of nodular density in the posterior right middle lobe (images 57-60). These findings suggest a waxing/waning inflammatory process. No effusion. No pneumothorax. No adenopathy. Tracheobronchial tree is patent. Further evaluation of the mediastinum demonstrates normal thoracic aorta and pulmonary vasculature. No cardiomegaly or pericardial effusion. Musculoskeletal structures are intact. IMPRESSION: 1. Small new area of nodular density in the right middle lobe. Small scattered ground-glass opacities. Previously noted left upper lobe nodule has resolved. Findings suggest an infectious/inflammatory process and should be correlated with clinical findings. <Electronically signed by Yousuf Valenzuela > 03/18/20 [id number]
== END ==
LOC: M RAD 10:58
PROVIDERS: ATTEND Internal Medicine Pulmonary Disease
DX: R91.8 Other nonspecific abnormal finding of lung field (principal)

== ENCOUNTER → 2020-04-18 | Outpatient (CLI) | payer MEDICARE | LOC: M LABSMTC 14:15 | PROVIDERS: ATTEND Pediatrics | DX: Z20.828 Contact with and (suspected) exposure to other viral communicable diseases (principal) ==

== ENCOUNTER → 2020-06-17 | Outpatient (CLI) | payer MEDICARE ==
[2020-06-17 17:23] LABS: BASO % 0.7 % (0.0-1.0); EOS # 0.1 10^3/uL (0.0-0.5); HEMATOCRIT 36.1 % (36.0-47.0); HEMOGLOBIN 11.5 g/dl (12.0-15.5); LYMPH # 0.9 10^3/uL (1.5-5.0); LYMPH % 20.6 % (24.0-44.0); MEAN CORPUSCULAR HGB CONC 31.9 g/dl (32.0-36.5); MEAN CORPUSCULAR VOLUME 91.2 fl (80.0-96.0); MONO # 0.6 10^3/uL (0.0-0.8); MONO % 14.2 % (2.0-8.0); NEUTROPHILS # 2.8 10^3/uL (1.5-8.5); NEUTROPHILS % 62.3 % (36.0-66.0); PLATELET COUNT, AUTOMATED 316 10^3/uL (150-450); RED BLOOD COUNT 3.96 10^6/uL (4.00-5.40); WHITE BLOOD COUNT 4.5 10^3/uL (4.0-10.0)
[2020-06-17 17:59] LABS: ALBUMIN 3.5 GM/DL (3.2-5.2); ALT/SGPT 23 U/L (12-78); BILIRUBIN,TOTAL 0.4 MG/DL (0.2-1.0); BLOOD UREA NITROGEN 10 MG/DL (7-18); CALCIUM LEVEL 8.9 MG/DL (8.8-10.2); CARBON DIOXIDE LEVEL 31 MEQ/L (21-32); CHLORIDE LEVEL 101 MEQ/L (98-107); CREATININE FOR GFR 0.72 MG/DL (0.55-1.30); GLOMERULAR FILTRATION RATE > 60.0 (>45); GLUCOSE, FASTING 90 MG/DL (70-100); POTASSIUM SERUM 4.2 MEQ/L (3.5-5.1); SODIUM LEVEL 139 MEQ/L (136-145); TOTAL PROTEIN 6.2 GM/DL (6.4-8.2)
== END ==
LOC: M WUC 14:50
PROVIDERS: ATTEND Family Medicine
DX: E07.9 Disorder of thyroid, unspecified (principal); I10 Essential (primary) hypertension

== ENCOUNTER → 2020-06-26 | Outpatient (REF) | payer MEDICARE ==
[~2020-06-26] MED LIST changes: -ASPI-262 PO; +ASPI325T59 PO
[2020-06-26 17:38] LABS: FERRITIN 10 NG/ML (8-252); IRON (FE) 125 UG/DL (50-170); PERCENT SATURATION 25.8 % (13.2-45.0); TOTAL IRON BINDING CAPACITY 484 UG/DL (250-450)
[2020-06-26 17:46] LABS: FOLATE > 24.0 NG/ML; VITAMIN B12 LEVEL 1299 PG/ML
== END ==
LOC: M LAB REF 16:26
PROVIDERS: ATTEND Family Medicine
DX: D64.9 Anemia, unspecified (principal)

== ENCOUNTER → 2020-07-04 | Outpatient (CLI) | payer MEDICARE ==
[~2020-07-04] MED LIST changes: +METHACHOLINE KIT (J7674) INH ONE
--- NOTE | 2020-07-04 10:40 | PFTRPT ---
Height: 67.00 Inches Weight: 172.00 Lbs BSA: 1.90 Diagnosis: R05 DATE: 07/04/2020 ORDERED BY: Skyler Waters M.D. QUALITY: Study of excellent technical quality. PROCEDURE: Under protocol, methacholine was administered. At a dose of 2.5 mg or 13.875 CDUs, a 48% decline in the FEV1 was noted. PC of 0.60 is significant. Flow rates did return to baseline post bronchodilator administration. IMPRESSION: Positive methacholine challenge study. MTDD
== END ==
LOC: M CARPUL 09:55
PROVIDERS: ATTEND Internal Medicine Pulmonary Disease
DX: R94.2 Abnormal results of pulmonary function studies (principal)
CPT/HCPCS: 94070; 95070; J7674

== ENCOUNTER → 2020-07-11 | Outpatient (CLI) | payer MEDICARE ==
[~2020-07-11] MED LIST changes: -METHACHOLINE KIT (J7674) INH ONE
--- NOTE | 2020-07-11 08:10 | REP ---
INDICATION: ABN FINDINGS OF LUNG FIELD COMPARISON: 03/18/2020, we 05/17/2019 TECHNIQUE: Axial noncontrast images from the thoracic inlet to the upper abdomen with coronal and sagittal reformations. This CT examination was performed using the following dose reduction techniques: Automated exposure control, adjustment of mA and/or kv according to the patient's size, and use of iterative reconstruction technique. FINDINGS: The bilateral lung link are relatively well aerated. The previously noted nodule/consolidation in the anterior left upper lobe has essentially completely resolved with only small residual focus of opacity (series 201; image 36). Very subtle ground-glass opacities in the right upper lobe are again identified and unchanged. No new consolidation, suspicious nodule or mass. No effusion. No pneumothorax. Tracheobronchial tree is patent. Mediastinum demonstrates normal stable thoracic aorta, pulmonary vasculature, and heart/pericardium. Surrounding musculoskeletal structures are intact. IMPRESSION: 1. Essentially near complete resolution to the previously noted somewhat ill-defined areas of nodular consolidation in the left upper lobe. Only small residual presumed scar identified. 2. No new acute significant mediastinal or pleuroparenchymal process appreciated. <Electronically signed by Yousuf Valenzuela > 07/11/20 [id number]
== END ==
LOC: M RAD 07:36
PROVIDERS: ATTEND Internal Medicine Pulmonary Disease
DX: R91.8 Other nonspecific abnormal finding of lung field (principal)

== ENCOUNTER → 2020-12-23 | Outpatient (CLI) | payer MEDICARE ==
[~2020-12-23] MED LIST changes: -HM P99TA PO; +POTA99TA14 PO
[2020-12-23 11:33] LABS: BASO % 0.6 % (0.0-1.0); EOS # 0.1 10^3/uL (0.0-0.5); EOS % 1.4 % (0.0-3.0); HEMATOCRIT 36.5 % (36.0-47.0); HEMOGLOBIN 12.1 g/dl (12.0-15.5); LYMPH % 20.4 % (24.0-44.0); MEAN CORPUSCULAR HEMOGLOBIN 30.9 pg (27.0-33.0); MEAN CORPUSCULAR HGB CONC 33.2 g/dl (32.0-36.5); MEAN CORPUSCULAR VOLUME 93.1 fl (80.0-96.0); MONO # 0.6 10^3/uL (0.0-0.8); MONO % 11.2 % (2.0-8.0); NEUTROPHILS # 3.4 10^3/uL (1.5-8.5); NEUTROPHILS % 66.2 % (36.0-66.0); PLATELET COUNT, AUTOMATED 326 10^3/uL (150-450); RED BLOOD COUNT 3.92 10^6/uL (4.00-5.40); WHITE BLOOD COUNT 5.1 10^3/uL (4.0-10.0)
[2020-12-23 13:14] LABS: ALBUMIN 3.3 GM/DL (3.2-5.2); ALT/SGPT 28 U/L (12-78); BILIRUBIN,TOTAL 0.5 MG/DL (0.2-1.0); BLOOD UREA NITROGEN 7 MG/DL (7-18); CALCIUM LEVEL 8.9 MG/DL (8.8-10.2); CARBON DIOXIDE LEVEL 30 MEQ/L (21-32); CHLORIDE LEVEL 105 MEQ/L (98-107); CHOLESTEROL LEVEL 269 MG/DL (<200); CHOLESTEROL RISK RATIO 2.956 (<5); CREATININE FOR GFR 0.58 MG/DL (0.55-1.30); FREE T4 0.94 NG/DL (0.76-1.46); GLOMERULAR FILTRATION RATE > 60.0 (>45); GLUCOSE, FASTING 107 MG/DL (70-100); HDL CHOLESTEROL 91 MG/DL (>40); LDL CHOLESTEROL 170 MG/DL (<100); NON-HDL-C 178 MG/DL; POTASSIUM SERUM 4.4 MEQ/L (3.5-5.1); SODIUM LEVEL 140 MEQ/L (136-145); TOTAL PROTEIN 6.4 GM/DL (6.4-8.2); TRIGLYCERIDES LEVEL 39 MG/DL (<150)
== END ==
LOC: M WUC 09:40
PROVIDERS: ATTEND Family Medicine
DX: D64.9 Anemia, unspecified (principal); I10 Essential (primary) hypertension; E07.9 Disorder of thyroid, unspecified

== ENCOUNTER → 2021-04-22 | Outpatient (CLI) | payer MEDICARE | LOC: M PLAIMG 14:49 | PROVIDERS: ATTEND Nurse Practitioner Adult Health | DX: R05.1 Acute cough (principal) ==

== ENCOUNTER → 2021-05-22 | Outpatient (REF) | payer MEDICARE | LOC: M LAB REF 17:16 | PROVIDERS: ATTEND Internal Medicine Pulmonary Disease | DX: J45.40 Moderate persistent asthma, uncomplicated (principal) ==

== ENCOUNTER → 2021-06-17 | Outpatient (CLI) | payer MEDICARE ==
[2021-06-17 16:03] LABS: BASO % 0.8 % (0.0-1.0); EOS # 0.1 10^3/uL (0.0-0.5); EOS % 1.4 % (0.0-3.0); HEMATOCRIT 37.3 % (36.0-47.0); HEMOGLOBIN 12.2 g/dl (12.0-15.5); LYMPH # 1.2 10^3/uL (1.5-5.0); LYMPH % 24.2 % (24.0-44.0); MEAN CORPUSCULAR HEMOGLOBIN 30.3 pg (27.0-33.0); MEAN CORPUSCULAR HGB CONC 32.7 g/dl (32.0-36.5); MEAN CORPUSCULAR VOLUME 92.6 fl (80.0-96.0); MONO # 0.5 10^3/uL (0.0-0.8); MONO % 8.9 % (2.0-8.0); NEUTROPHILS # 3.3 10^3/uL (1.5-8.5); NEUTROPHILS % 64.7 % (36.0-66.0); PLATELET COUNT, AUTOMATED 310 10^3/uL (150-450); RED BLOOD COUNT 4.03 10^6/uL (4.00-5.40); WHITE BLOOD COUNT 5.1 10^3/uL (4.0-10.0)
== END ==
LOC: M WUC 14:07
PROVIDERS: ATTEND Family Medicine
DX: I10 Essential (primary) hypertension (principal); D64.9 Anemia, unspecified

== ENCOUNTER → 2021-08-07 | Outpatient (REF) | payer MEDICARE | LOC: M SFHCPLAZ 17:15 | PROVIDERS: ATTEND Nurse Practitioner Family | DX: L82.1 Other seborrheic keratosis (principal) ==

== ENCOUNTER → 2021-09-19 | Outpatient (REF) | payer MEDICARE | LOC: M SFHCDERM 14:22 | PROVIDERS: ATTEND Dermatology | DX: L90.5 Scar conditions and fibrosis of skin (principal) ==

== ENCOUNTER → 2021-10-24 | Outpatient (CLI) | payer MEDICARE ==
[2021-10-24 16:23] LABS: BLOOD UREA NITROGEN 13 MG/DL (7-18); CALCIUM LEVEL 9.5 MG/DL (8.8-10.2); CARBON DIOXIDE LEVEL 33 MEQ/L (21-32); CHLORIDE LEVEL 102 MEQ/L (98-107); CREATININE FOR GFR 0.79 MG/DL (0.55-1.30); GLOMERULAR FILTRATION RATE > 60.0 (>45); GLUCOSE, FASTING 103 MG/DL (70-100); POTASSIUM SERUM 4.2 MEQ/L (3.5-5.1); SODIUM LEVEL 137 MEQ/L (136-145)
== END ==
LOC: M WUC 14:49
PROVIDERS: ATTEND Internal Medicine Cardiovascular Disease
DX: R07.89 Other chest pain (principal)

== ENCOUNTER → 2021-10-29 | Outpatient (CLI) | payer MEDICARE ==
[2021-10-29 12:38] LABS: EOS # 0.1 10^3/uL (0.0-0.5); EOS % 2.2 % (0.0-3.0); HEMATOCRIT 37.8 % (36.0-47.0); LYMPH # 1.2 10^3/uL (1.5-5.0); LYMPH % 28.9 % (24.0-44.0); MEAN CORPUSCULAR HEMOGLOBIN 28.8 pg (27.0-33.0); MEAN CORPUSCULAR HGB CONC 31.7 g/dl (32.0-36.5); MEAN CORPUSCULAR VOLUME 90.6 fl (80.0-96.0); MONO # 0.5 10^3/uL (0.0-0.8); MONO % 12.6 % (2.0-8.0); NEUTROPHILS # 2.3 10^3/uL (1.5-8.5); NEUTROPHILS % 55.1 % (36.0-66.0); PLATELET COUNT, AUTOMATED 375 10^3/uL (150-450); RED BLOOD COUNT 4.17 10^6/uL (4.00-5.40); WHITE BLOOD COUNT 4.1 10^3/uL (4.0-10.0)
[2021-10-29 13:20] LABS: ALBUMIN 3.5 GM/DL (3.2-5.2); ALT/SGPT 27 U/L (12-78); BILIRUBIN,TOTAL 0.6 MG/DL (0.2-1.0); BLOOD UREA NITROGEN 9 MG/DL (7-18); CALCIUM LEVEL 9.4 MG/DL (8.8-10.2); CARBON DIOXIDE LEVEL 30 MEQ/L (21-32); CHLORIDE LEVEL 100 MEQ/L (98-107); CHOLESTEROL LEVEL 232 MG/DL (<200); CHOLESTEROL RISK RATIO 2.606 (<5); CREATININE FOR GFR 0.82 MG/DL (0.55-1.30); FREE T4 1.02 NG/DL (0.76-1.46); GLOMERULAR FILTRATION RATE > 60.0 (>45); GLUCOSE, FASTING 109 MG/DL (70-100); HDL CHOLESTEROL 89 MG/DL (>40); LDL CHOLESTEROL 128 MG/DL (<100); NON-HDL-C 143 MG/DL; POTASSIUM SERUM 4.2 MEQ/L (3.5-5.1); SODIUM LEVEL 137 MEQ/L (136-145); TOTAL PROTEIN 6.8 GM/DL (6.4-8.2); TRIGLYCERIDES LEVEL 73 MG/DL (<150)
== END ==
LOC: M WUC 09:32
PROVIDERS: ATTEND Family Medicine
DX: I10 Essential (primary) hypertension (principal); E78.00 Pure hypercholesterolemia, unspecified; E07.9 Disorder of thyroid, unspecified

== ENCOUNTER → 2021-11-21 | Outpatient (CLI) | payer MEDICARE | LOC: M RAD 11:05 | PROVIDERS: ATTEND Internal Medicine Pulmonary Disease | DX: R91.8 Other nonspecific abnormal finding of lung field (principal); R59.0 Localized enlarged lymph nodes; I70.0 Atherosclerosis of aorta; I25.10 Atherosclerotic heart disease of native coronary artery without angina pectoris; Z90.49 Acquired absence of other specified parts of digestive tract; I35.8 Other nonrheumatic aortic valve disorders ==

== ENCOUNTER → 2021-12-19 | Outpatient (REF) | payer MEDICARE ==
[2021-12-19 11:25] LABS: PLATELET COUNT, AUTOMATED 336 10^3/uL (150-450)
[2021-12-19 11:39] LABS: INR 0.93; PROTHROMBIN TIME 12.9 SECONDS (12.7-14.5)
[2021-12-19 11:40] LABS: PARTIAL THROMBOPLASTIN TIME 29.7 SECONDS (25.9-37.0)
== END ==
LOC: M LABWUC 11:06
PROVIDERS: ATTEND Internal Medicine Pulmonary Disease
DX: R91.8 Other nonspecific abnormal finding of lung field (principal)

== ENCOUNTER → 2021-12-25 | Outpatient (CLI) | payer MEDICARE ==
[~2021-12-25] MED LIST changes: +ARNU1INH3 INH; +FLOM0.4C39 PO; +GABA-1171 PO; +HOME MED LIST COMPLETE! XX SCH; +IBUP-1730 PO; +LIDOCAINE 1% MDV 20ML VIAL As Ordered ONE; +THERTAB21 PO
[2021-12-25 11:08] VITALS: BP 142/68
== END ==
LOC: M IRPRO 07:51
PROVIDERS: ATTEND Internal Medicine Pulmonary Disease
DX: R91.1 Solitary pulmonary nodule (principal)

== ENCOUNTER → 2022-01-01 | Outpatient (CLI) | payer MEDICARE ==
[~2022-01-01] MED LIST changes: -HOME MED LIST COMPLETE! XX SCH; -LIDOCAINE 1% MDV 20ML VIAL As Ordered ONE
[2022-01-01 22:07] LABS: BASO % 0.5 % (0.0-1.0); EOS # 0.1 10^3/uL (0.0-0.5); EOS % 1.1 % (0.0-3.0); HEMATOCRIT 34.7 % (36.0-47.0); LYMPH # 1.3 10^3/uL (1.5-5.0); MEAN CORPUSCULAR HEMOGLOBIN 27.9 pg (27.0-33.0); MEAN CORPUSCULAR HGB CONC 31.7 g/dl (32.0-36.5); MEAN CORPUSCULAR VOLUME 88.1 fl (80.0-96.0); MONO # 0.5 10^3/uL (0.0-0.8); MONO % 8.4 % (2.0-8.0); NEUTROPHILS # 3.7 10^3/uL (1.5-8.5); NEUTROPHILS % 66.6 % (36.0-66.0); PLATELET COUNT, AUTOMATED 379 10^3/uL (150-450); RED BLOOD COUNT 3.94 10^6/uL (4.00-5.40); WHITE BLOOD COUNT 5.5 10^3/uL (4.0-10.0)
[2022-01-01 22:19] LABS: ALBUMIN 3.6 GM/DL (3.2-5.2); ALT/SGPT 26 U/L (12-78); BILIRUBIN,DIRECT < 0.1 MG/DL (0.0-0.2); BILIRUBIN,TOTAL 0.3 MG/DL (0.2-1.0); C REACTIVE PROTEIN QUANTITATIV < 0.30 MG/DL (0.00-0.30); CREATININE FOR GFR 0.82 MG/DL (0.55-1.30); GLOMERULAR FILTRATION RATE > 60.0 (>45); RHEUMATOID FACTOR QUANT < 10.0 IU/ML (<15.0); TOTAL PROTEIN 6.7 GM/DL (6.4-8.2)
[2022-01-01 22:54] LABS: ERYTHROCYTE SEDIMENTATION RATE 17 mm/hr (0-30)
[2022-01-14 10:08] LABS: ANCA-ATYPICAL <1:20 titer (Neg:<1:20); ANGIOTENSIN 1 CONVERTING ENZYM 26 U/L (14-82); ANTI DS-DNA AB Negative (Negative); ANTINUCLEAR ANTIBODIES DIRECT Negative (Negative); ASPERGILLUS FLAVUS ABY Negative (Neg:<1:1); ASPERGILLUS FUMIGATUS ABY Negative (Neg:<1:1); ASPERGILLUS NIGER ABY Negative (Neg:<1:1); BLASTOMYCES ANTIBODY LEVEL Negative (Neg:<1:1); CRYPTOCOCCUS ANTIGEN SER Negative (Negative); CYCLIC CITRULLINATED PEPTIDE 4 units (0-19); CYTOPLASMIC NEUTROP AB ANCA-C <1:20 titer (Neg:<1:20); PERINUCLEAR AB ANCA-P <1:20 titer (Neg:<1:20); RNP ANTIBODIES <0.2 AI (0.0-0.9); SJOGREN'S ANTI SS-A <0.2 AI (0.0-0.9); SJOGREN'S ANTI SS-B <0.2 AI (0.0-0.9); SMITH ANTIBODIES <0.2 AI (0.0-0.9)
== END ==
LOC: M WUC 15:14
PROVIDERS: ATTEND Internal Medicine Pulmonary Disease
DX: R91.8 Other nonspecific abnormal finding of lung field (principal)

== ENCOUNTER → 2022-02-16 | Outpatient (CLI) | payer MEDICARE | LOC: M PLAIMG 09:58 | PROVIDERS: ATTEND Internal Medicine Pulmonary Disease | DX: R91.8 Other nonspecific abnormal finding of lung field (principal) ==

== ENCOUNTER → 2022-04-24 | Outpatient (CLI) | payer MEDICARE ==
[2022-04-24 12:23] LABS: BASO # 0.1 10^3/uL (0.0-0.2); BASO % 0.9 % (0.0-1.0); EOS # 0.1 10^3/uL (0.0-0.5); EOS % 1.8 % (0.0-3.0); HEMATOCRIT 35.3 % (36.0-47.0); LYMPH # 1.2 10^3/uL (1.5-5.0); LYMPH % 20.5 % (24.0-44.0); MEAN CORPUSCULAR HEMOGLOBIN 26.8 pg (27.0-33.0); MEAN CORPUSCULAR HGB CONC 31.2 g/dl (32.0-36.5); MEAN CORPUSCULAR VOLUME 85.9 fl (80.0-96.0); MONO # 0.6 10^3/uL (0.0-0.8); MONO % 10.9 % (2.0-8.0); NEUTROPHILS # 3.8 10^3/uL (1.5-8.5); NEUTROPHILS % 65.7 % (36.0-66.0); PLATELET COUNT, AUTOMATED 372 10^3/uL (150-450); RED BLOOD COUNT 4.11 10^6/uL (4.00-5.40); WHITE BLOOD COUNT 5.7 10^3/uL (4.0-10.0)
[2022-04-24 12:59] LABS: ALBUMIN 3.3 G/DL (3.2-5.2); ALKALINE PHOSPHATASE 77 U/L (46-116); ALT/SGPT 18 U/L (7.0-40); AST/SGOT 24 U/L (<34); BILIRUBIN,TOTAL 0.5 MG/DL (0.3-1.2); BLOOD UREA NITROGEN 9 MG/DL (9-23); CALCIUM LEVEL 9.2 MG/DL (8.3-10.6); CARBON DIOXIDE LEVEL 30 MMOL/L (20-31); CHLORIDE LEVEL 102 MMOL/L (98-107); CHOLESTEROL LEVEL 224 MG/DL (<200); CHOLESTEROL RISK RATIO 2.61 (<5); CREATININE FOR GFR 0.65 MG/DL (0.55-1.30); FREE T4 1.15 NG/DL (0.89-1.76); GLOMERULAR FILTRATION RATE > 60.0 (>45); GLUCOSE, FASTING 99 MG/DL (74-106); HDL CHOLESTEROL 85.6 MG/DL (>40); LDL CHOLESTEROL 126.6 MG/DL (<100); NON-HDL-C 138 MG/DL; POTASSIUM SERUM 4.1 MMOL/L (3.5-5.1); SODIUM LEVEL 139 MMOL/L (136-145); THYROID STIMULATING HORMONE 4.922 uIU/ML (0.55-4.78); TOTAL PROTEIN 6.3 G/DL (5.7-8.2); TRIGLYCERIDES LEVEL 59 MG/DL (<150)
== END ==
LOC: M WUC 09:07
PROVIDERS: ATTEND Family Medicine
DX: I10 Essential (primary) hypertension (principal); E78.00 Pure hypercholesterolemia, unspecified; D64.9 Anemia, unspecified

== ENCOUNTER → 2022-05-28 | Outpatient (CLI) | payer MEDICARE ==
[2022-05-28 17:20] LABS: BASO # 0.1 10^3/uL (0.0-0.2); EOS # 0.1 10^3/uL (0.0-0.5); EOS % 1.2 % (0.0-3.0); HEMOGLOBIN 10.5 g/dl (12.0-15.5); LYMPH # 1.3 10^3/uL (1.5-5.0); LYMPH % 26.7 % (24.0-44.0); MEAN CORPUSCULAR HEMOGLOBIN 26.6 pg (27.0-33.0); MEAN CORPUSCULAR HGB CONC 30.9 g/dl (32.0-36.5); MEAN CORPUSCULAR VOLUME 86.1 fl (80.0-96.0); MONO # 0.6 10^3/uL (0.0-0.8); MONO % 12.2 % (2.0-8.0); NEUTROPHILS # 2.8 10^3/uL (1.5-8.5); NEUTROPHILS % 58.9 % (36.0-66.0); PLATELET COUNT, AUTOMATED 395 10^3/uL (150-450); RED BLOOD COUNT 3.95 10^6/uL (4.00-5.40); WHITE BLOOD COUNT 4.8 10^3/uL (4.0-10.0)
[2022-05-28 17:31] LABS: ERYTHROCYTE SEDIMENTATION RATE 27 mm/hr (0-30)
== END ==
LOC: M WUC 11:32
PROVIDERS: ATTEND Orthopaedic Surgery
DX: Z96.653 Presence of artificial knee joint, bilateral (principal)

== ENCOUNTER → 2022-08-21 | Outpatient (CLI) | payer MEDICARE | LOC: M WHC 11:01 | PROVIDERS: ATTEND Family Medicine | DX: M81.0 Age-related osteoporosis without current pathological fracture (principal); M85.89 Other specified disorders of bone density and structure, multiple sites ==

== ENCOUNTER → 2022-09-02 | Outpatient (CLI) | payer MEDICARE | LOC: M PLAIMG 11:05 | PROVIDERS: ATTEND Internal Medicine Pulmonary Disease | DX: R91.8 Other nonspecific abnormal finding of lung field (principal); J94.8 Other specified pleural conditions; K44.9 Diaphragmatic hernia without obstruction or gangrene; M51.34 Other intervertebral disc degeneration, thoracic region ==

== ENCOUNTER → 2022-11-03 | Outpatient (CLI) | payer MEDICARE ==
[2022-11-03 10:03] LABS: BASO % 0.9 % (0.0-1.0); EOS # 0.1 10^3/uL (0.0-0.5); EOS % 1.5 % (0.0-3.0); HEMATOCRIT 28.8 % (36.0-47.0); HEMOGLOBIN 8.9 g/dl (12.0-15.5); LYMPH # 1.5 10^3/uL (1.5-5.0); LYMPH % 32.7 % (24.0-44.0); MEAN CORPUSCULAR HEMOGLOBIN 24.6 pg (27.0-33.0); MEAN CORPUSCULAR HGB CONC 30.9 g/dl (32.0-36.5); MEAN CORPUSCULAR VOLUME 79.6 fl (80.0-96.0); MONO # 0.5 10^3/uL (0.0-0.8); MONO % 10.5 % (2.0-8.0); NEUTROPHILS # 2.5 10^3/uL (1.5-8.5); NEUTROPHILS % 54.2 % (36.0-66.0); PLATELET COUNT, AUTOMATED 399 10^3/uL (150-450); RED BLOOD COUNT 3.62 10^6/uL (4.00-5.40); WHITE BLOOD COUNT 4.7 10^3/uL (4.0-10.0)
[2022-11-03 10:30] LABS: ALBUMIN 3.1 G/DL (3.2-5.2); ALKALINE PHOSPHATASE 69 U/L (46-116); ALT/SGPT 19 U/L (7.0-40); AST/SGOT 14 U/L (<34); BILIRUBIN,TOTAL 0.4 MG/DL (0.3-1.2); BLOOD UREA NITROGEN 10 MG/DL (9-23); CALCIUM LEVEL 9.6 MG/DL (8.3-10.6); CARBON DIOXIDE LEVEL 30 MMOL/L (20-31); CHLORIDE LEVEL 104 MMOL/L (98-107); CHOLESTEROL LEVEL 226 MG/DL (<200); CHOLESTEROL RISK RATIO 3.02 (<5); CREATININE FOR GFR 0.64 MG/DL (0.55-1.30); GLOMERULAR FILTRATION RATE > 60.0 (>45); GLUCOSE, FASTING 88 MG/DL (74-106); HDL CHOLESTEROL 74.7 MG/DL (>40); LDL CHOLESTEROL 140.1 MG/DL (<100); NON-HDL-C 151.3 MG/DL; POTASSIUM SERUM 4.5 MMOL/L (3.5-5.1); SODIUM LEVEL 138 MMOL/L (136-145); TOTAL PROTEIN 5.8 G/DL (5.7-8.2); TRIGLYCERIDES LEVEL 56 MG/DL (<150)
[2022-11-03 10:33] LABS: FREE T4 0.99 NG/DL (0.89-1.76); THYROID STIMULATING HORMONE 9.167 uIU/ML (0.55-4.78)
== END ==
LOC: M WUC 08:26
PROVIDERS: ATTEND Family Medicine
DX: K21.9 Gastro-esophageal reflux disease without esophagitis (principal); E78.00 Pure hypercholesterolemia, unspecified; D64.9 Anemia, unspecified; E07.9 Disorder of thyroid, unspecified

== ENCOUNTER → 2022-11-04 | Outpatient (REF) | payer MEDICARE ==
[2022-11-04 17:39] LABS: IRON (FE) 16 UG/DL (50-170); PERCENT SATURATION 3.5 % (13.2-45.0); TOTAL IRON BINDING CAPACITY 462 UG/DL (250-425)
[2022-11-04 17:41] LABS: FREE T3 3.5 PG/ML (2.3-4.2); VITAMIN B12 LEVEL 885 PG/ML (211-911)
[2022-11-04 17:42] LABS: FERRITIN 3.2 NG/ML (7.3-270.7); FOLATE > 24.0 NG/ML (>5.4)
== END ==
LOC: M LAB REF 16:21
PROVIDERS: ATTEND Family Medicine
DX: E07.9 Disorder of thyroid, unspecified (principal); D64.9 Anemia, unspecified

== ENCOUNTER → 2022-12-08 | Outpatient (REF) | payer MEDICARE | LOC: M SFHCDERM 17:41 | PROVIDERS: ATTEND Physician Assistant | DX: L82.1 Other seborrheic keratosis (principal); L57.8 Other skin changes due to chronic exposure to nonionizing radiation ==

== ENCOUNTER 2023-01-08 09:03 | Outpatient (CLI) | payer MEDICARE ==
[~2023-01-08] VITALS: Ht 167.6 cm; Wt 85.4 kg
[2023-01-08 09:00] VITALS: BP 139/65; O2SAT 99
[~2023-01-08 09:03] MED LIST changes: +ALBUTEROL SULFATE 2.5MG/0.5ML INH NEB SOLN INH PRN; +EPINEPHrine INJ 1 MG/ML 1ML AMP IM PRN; +diphenhydrAMINE 50MG/ML VIAL IV PRN; +methylPREDNISolone 125MG 2ML VIAL IV PRN
[2023-01-08] MEDS ORDERED: NS 1,000 ML IV SCH (09:55)
[2023-01-08] MEDS ORDERED: IRON SUCROSE 25 MG in NS 23.75 ML IV ONE (10:00)
[2023-01-08] MEDS ORDERED: IRON SUCROSE 475 MG in NS 250 ML IV ONE (10:00)
[2023-01-08 11:28] VITALS: BP 135/75; O2SAT 100
[2023-01-08 12:30] VITALS: BP 138/71; O2SAT 98
[2023-01-08 14:30] VITALS: BP 130/65; O2SAT 100
[2023-01-08 15:50] VITALS: BP 146/69; O2SAT 100
== END 2023-01-08 15:50 | disposition home or self-care (01) ==
LOC: M INFU 09:03
PROVIDERS: ATTEND Family Medicine
DX: D50.9 Iron deficiency anemia, unspecified (principal); Z88.1 Allergy status to other antibiotic agents; Z88.2 Allergy status to sulfonamides
CPT/HCPCS: 96365; 96366; J1756

== ENCOUNTER → 2023-01-29 | Outpatient (REF) | payer MEDICARE ==
[~2023-01-29] MED LIST changes: -ALBUTEROL SULFATE 2.5MG/0.5ML INH NEB SOLN INH PRN; -EPINEPHrine INJ 1 MG/ML 1ML AMP IM PRN; -diphenhydrAMINE 50MG/ML VIAL IV PRN; -methylPREDNISolone 125MG 2ML VIAL IV PRN
== END ==
LOC: M LAB REF 16:35
PROVIDERS: ATTEND Family Medicine
DX: D50.9 Iron deficiency anemia, unspecified (principal)

== ENCOUNTER → 2023-03-23 | Outpatient (REF) | payer MEDICARE ==
[2023-03-23 20:49] LABS: BASO % 0.7 % (0.0-1.0); EOS # 0.1 10^3/uL (0.0-0.5); HEMATOCRIT 32.6 % (36.0-47.0); LYMPH # 1.3 10^3/uL (1.5-5.0); LYMPH % 21.5 % (24.0-44.0); MEAN CORPUSCULAR HEMOGLOBIN 24.7 pg (27.0-33.0); MEAN CORPUSCULAR HGB CONC 30.7 g/dl (32.0-36.5); MEAN CORPUSCULAR VOLUME 80.5 fl (80.0-96.0); MONO # 0.7 10^3/uL (0.0-0.8); MONO % 11.1 % (2.0-8.0); NEUTROPHILS # 3.8 10^3/uL (1.5-8.5); NEUTROPHILS % 65.5 % (36.0-66.0); PLATELET COUNT, AUTOMATED 401 10^3/uL (150-450); RED BLOOD COUNT 4.05 10^6/uL (4.00-5.40); WHITE BLOOD COUNT 5.9 10^3/uL (4.0-10.0)
[2023-03-23 20:54] LABS: ALBUMIN 3.3 G/DL (3.2-5.2); ALKALINE PHOSPHATASE 75 U/L (46-116); ALT/SGPT 26 U/L (7.0-40); AST/SGOT 24 U/L (<34); BILIRUBIN,TOTAL 0.2 MG/DL (0.3-1.2); BLOOD UREA NITROGEN 14 MG/DL (9-23); CARBON DIOXIDE LEVEL 32 MMOL/L (20-31); CHLORIDE LEVEL 102 MMOL/L (98-107); GLOMERULAR FILTRATION RATE > 60.0 (>39); GLUCOSE, FASTING 101 MG/DL (74-106); POTASSIUM SERUM 4.1 MMOL/L (3.5-5.1); SODIUM LEVEL 141 MMOL/L (136-145); TOTAL PROTEIN 6.2 G/DL (5.7-8.2)
[2023-03-23 20:56] LABS: FREE T4 0.96 NG/DL (0.89-1.76)
== END ==
LOC: M LAB REF 19:48
PROVIDERS: ATTEND Family Medicine
DX: K21.9 Gastro-esophageal reflux disease without esophagitis (principal); I10 Essential (primary) hypertension; E07.9 Disorder of thyroid, unspecified

== ENCOUNTER 2023-08-19 09:52 | Day surgery (SDC) | payer MEDICARE ==
[~2023-08-19] VITALS: Ht 167.6 cm; Wt 87.6 kg
[~2023-08-19 09:52] MED LIST changes: +LIDOCAINE 2% 100MG/5ML SDV (FOR ANES.) As Ordered ONE; +THERTAB52 PO; +TRAM50TA2 PO; +propofoL 200 MG/20 ML VIAL As Ordered ONE; +propofoL 500 MG/50 ML VIAL As Ordered ONE
[2023-08-19] MEDS: NS 1,000 ML IV ONE (10:29)
[2023-08-19 11:19] VITALS: TEMP 97.6
[2023-08-19 11:37] VITALS: BP 117/59; O2SAT 99
== END 2023-08-19 11:49 | disposition home or self-care (01) ==
LOC: M OPP 09:52
PROVIDERS: ATTEND Surgery
DX: Z12.11 Encounter for screening for malignant neoplasm of colon (principal); D12.2 Benign neoplasm of ascending colon; D12.3 Benign neoplasm of transverse colon; D12.7 Benign neoplasm of rectosigmoid junction; K57.30 Diverticulosis of large intestine without perforation or abscess without bleeding; K44.9 Diaphragmatic hernia without obstruction or gangrene; K31.89 Other diseases of stomach and duodenum; K30 Functional dyspepsia; Z80.0 Family history of malignant neoplasm of digestive organs; J45.909 Unspecified asthma, uncomplicated; Z79.1 Long term (current) use of non-steroidal anti-inflammatories (NSAID); Z79.52 Long term (current) use of systemic steroids; Z79.82 Long term (current) use of aspirin; Z79.891 Long term (current) use of opiate analgesic; Z79.899 Other long term (current) drug therapy; Z88.1 Allergy status to other antibiotic agents; Z88.2 Allergy status to sulfonamides; Z88.8 Allergy status to other drugs, medicaments and biological substances

== ENCOUNTER → 2023-08-27 | Outpatient (REF) | payer MEDICARE ==
[~2023-08-27] MED LIST changes: +COD1CAPS3 PO; -CODCAP5 PO; -LIDOCAINE 2% 100MG/5ML SDV (FOR ANES.) As Ordered ONE; -propofoL 200 MG/20 ML VIAL As Ordered ONE; -propofoL 500 MG/50 ML VIAL As Ordered ONE
[2023-08-27 12:58] LABS: FERRITIN 4.1 NG/ML (7.3-270.7)
[2023-08-27 12:59] LABS: PERCENT SATURATION 6.7 % (13.2-45.0)
== END ==
LOC: M LAB REF 11:24
PROVIDERS: ATTEND Family Medicine
DX: D50.9 Iron deficiency anemia, unspecified (principal)

== ENCOUNTER → 2023-09-06 | Outpatient (CLI) | payer MEDICARE | LOC: M PLAIMG 13:32 | PROVIDERS: ATTEND Family Medicine | DX: R01.1 Cardiac murmur, unspecified (principal) ==

== ENCOUNTER → 2023-09-30 | Outpatient (REF) | payer MEDICARE ==
[~2023-09-30] MED LIST changes: +ESOM1CAP20 PO; -ESOM1CAP5 PO
== END ==
LOC: M LAB REF 16:52
PROVIDERS: ATTEND Family Medicine
DX: D50.9 Iron deficiency anemia, unspecified (principal)

== ENCOUNTER → 2023-10-05 | Outpatient (CLI) | payer MEDICARE | LOC: M RAD 14:56 | PROVIDERS: ATTEND Internal Medicine Pulmonary Disease | DX: J98.4 Other disorders of lung (principal) ==

== ENCOUNTER → 2023-12-30 | Outpatient (REF) | payer MEDICARE | LOC: M LAB REF 16:19 | PROVIDERS: ATTEND Family Medicine | DX: D50.9 Iron deficiency anemia, unspecified (principal) ==

== ENCOUNTER → 2024-06-26 | Outpatient (REF) | payer MEDICARE ==
[~2024-06-26] MED LIST changes: +IBAN150T10 PO; -IBAN150T6 PO
== END ==
LOC: M LAB REF 12:10
PROVIDERS: ATTEND Family Medicine
DX: D50.9 Iron deficiency anemia, unspecified (principal)

== ENCOUNTER → 2024-07-01 | Outpatient (CLI) | payer MEDICARE | LOC: M RAD 10:33 | PROVIDERS: ATTEND Student in an Organized Health Care Education/Training Program | DX: R06.02 Shortness of breath (principal) ==

== ENCOUNTER → 2024-07-24 | Outpatient (CLI) | payer MEDICARE | LOC: M WUC 15:00 | PROVIDERS: ATTEND Family Medicine | DX: R05.9 Cough, unspecified (principal) ==

== ENCOUNTER → 2024-08-25 | Outpatient (CLI) | payer MEDICARE ==
[~2024-08-25] MED LIST changes: -FLOM0.4C39 PO; +TAMS-18 PO
== END ==
LOC: M WUC 10:21
PROVIDERS: ATTEND Physician Assistant Medical
DX: J18.9 Pneumonia, unspecified organism (principal)

== ENCOUNTER → 2024-12-22 | Outpatient (CLI) | payer MEDICARE ==
[2024-12-22 12:50] LABS: BASO # 0.1 10^3/uL (0.0-0.2); BASO % 1.1 % (0.0-1.0); EOS # 0.1 10^3/uL (0.0-0.5); EOS % 2.2 % (0.0-3.0); LYMPH # 1.4 10^3/uL (1.5-5.0); LYMPH % 30.0 % (24.0-44.0); MONO # 0.4 10^3/uL (0.0-0.8); MONO % 9.6 % (2.0-8.0); NEUTROPHILS # 2.6 10^3/uL (1.5-8.5); NEUTROPHILS % 56.9 % (36.0-66.0); PLATELET COUNT, AUTOMATED 306 10^3/uL (150-450)
[2024-12-22 12:53] LABS: ALT/SGPT 22 U/L (7.0-40); AST/SGOT 21 U/L (<34); CALCIUM LEVEL 9.3 MG/DL (8.3-10.6); CARBON DIOXIDE LEVEL 33 MMOL/L (20-31); CHLORIDE LEVEL 103 MMOL/L (98-107); CHOLESTEROL LEVEL 228 MG/DL (<200); CHOLESTEROL RISK RATIO 3.21 (<5); CREATININE FOR GFR 0.67 MG/DL (0.55-1.30); GLOMERULAR FILTRATION RATE > 90.0 (>39); LDL CHOLESTEROL 143.5 MG/DL (<100); NON-HDL-C 157.1 MG/DL; POTASSIUM SERUM 4.3 MMOL/L (3.5-5.1); SODIUM LEVEL 143 MMOL/L (136-145); TRIGLYCERIDES LEVEL 68 MG/DL (<150)
== END ==
LOC: M WUC 08:21
PROVIDERS: ATTEND Family Medicine
DX: K21.9 Gastro-esophageal reflux disease without esophagitis (principal); E78.00 Pure hypercholesterolemia, unspecified; E07.9 Disorder of thyroid, unspecified; D50.9 Iron deficiency anemia, unspecified

== ENCOUNTER → 2025-01-12 | Outpatient (CLI) | payer MEDICARE | LOC: M WHC 13:40 | PROVIDERS: ATTEND Family Medicine | DX: M85.89 Other specified disorders of bone density and structure, multiple sites (principal) ==

== ENCOUNTER → 2025-01-30 | Outpatient (CLI) | payer MEDICARE ==
[2025-01-30 15:10] LABS: FREE T4 1.1 NG/DL (0.89-1.76)
== END ==
LOC: M WUC 09:49
PROVIDERS: ATTEND Family Medicine
DX: I10 Essential (primary) hypertension (principal); E07.9 Disorder of thyroid, unspecified

== ENCOUNTER → 2025-04-06 | Outpatient (REF) | payer MEDICARE | LOC: M SFHCDERM 17:22 | PROVIDERS: ATTEND Nurse Practitioner Family | DX: C44.619 Basal cell carcinoma of skin of left upper limb, including shoulder (principal); D22.39 Melanocytic nevi of other parts of face ==

== ENCOUNTER → 2025-04-24 | Outpatient (REF) | payer MEDICARE ==
[2025-04-24 12:54] LABS: BASO # 0.0 10^3/uL (0.0-0.2); BASO % 0.4 % (0.0-1.0); EOS # 0.1 10^3/uL (0.0-0.5); EOS % 0.7 % (0.0-3.0); LYMPH # 3.3 10^3/uL (1.5-5.0); LYMPH % 35.6 % (24.0-44.0); MONO # 0.8 10^3/uL (0.0-0.8); MONO % 8.3 % (2.0-8.0); NEUTROPHILS # 4.9 10^3/uL (1.5-8.5); NEUTROPHILS % 54.1 % (36.0-66.0); PLATELET COUNT, AUTOMATED 378 10^3/uL (150-450)
[2025-04-24 14:09] LABS: ALT/SGPT 26.0 U/L (7.0-40); AST/SGOT 17.0 U/L (<34); CALCIUM LEVEL 9.8 MG/DL (8.3-10.6); CARBON DIOXIDE LEVEL 32.0 MMOL/L (20-31); CHLORIDE LEVEL 95.0 MMOL/L (98-107); CREATININE FOR GFR 0.77 MG/DL (0.55-1.30); FREE T4 1.28 NG/DL (0.89-1.76); GLOMERULAR FILTRATION RATE 81.9 (>39); POTASSIUM SERUM 3.8 MMOL/L (3.5-5.1); SODIUM LEVEL 139.0 MMOL/L (136-145)
== END ==
LOC: M LAB REF 12:27 → M LABWUC 12:27
PROVIDERS: ATTEND Family Medicine
DX: E78.00 Pure hypercholesterolemia, unspecified (principal); E07.9 Disorder of thyroid, unspecified; M85.9 Disorder of bone density and structure, unspecified